=== PATIENT | male | born 1965 | race Caucasian/White ===

== ENCOUNTER 2018-09-21 21:34 | Emergency (ER) | payer BC ==
[~2018-09-21] VITALS: Ht 172.7 cm; Wt 83.9 kg
[2018-09-21 21:37] VITALS: BP 125/75
[2018-09-21] MEDS ORDERED: TDAP [DIPH/PERTUSSIS/TET] 0.5 ML VIAL IM ONE ×2 (22:30→22:39)
[2018-09-21] MEDS ORDERED: LIDOCAINE 1% INJ 50 ML MDV IJ ONE (23:30)
[2018-09-22] MEDS ORDERED: LIDOCAINE 1% INJ 50 ML MDV IJ ONE (00:30)
== END 2018-09-22 02:30 | disposition home or self-care (01) ==
LOC: ER 21:41
DX: S01.511A Laceration without foreign body of lip, initial encounter (principal); W54.0XXA Bitten by dog, initial encounter; Y93.89 Activity, other specified; Y92.89 Other specified places as the place of occurrence of the external cause; Y99.8 Other external cause status
CPT/HCPCS: 90715; A6402; J3490

== ENCOUNTER 2020-05-17 18:28 | Inpatient (IN) | payer BC ==
[~2020-05-17] VITALS: Ht 175.3 cm; Wt 78.0 kg
[2020-05-17] MEDS ORDERED: PANTOPRAZOLE 40 MG VIAL IV ONE ×2 (19:00→19:30)
[2020-05-17] MEDS ORDERED: PANTOPRAZOLE 80 MG in IV NS 0.9% 500 ML IV ONE (19:00)
[2020-05-17] MEDS ORDERED: ONDANSETRON HCL/PF 4 MG/2 ML VIAL IVP ONE (19:00)
[2020-05-17] MEDS ORDERED: IV NS 0.9% 1,000 ML BAG IV ONE (19:00)
[2020-05-17] MEDS ORDERED: ALPR0.5T8 PO (19:01)
[2020-05-17] MEDS ORDERED: ESCI10TA PO (19:01)
[2020-05-17] MEDS ORDERED: PANTOPRAZOLE 40 MG VIAL ONE ×2 (19:04→19:28)
[2020-05-17] MEDS ORDERED: ONDANSETRON HCL/PF 4 MG/2 ML VIAL ONE (19:04)
[2020-05-17 19:18] LABS: BASOPHILS # (AUTO) 0.1 /CMM (0.0-0.2); BASOPHILS % (AUTO) 0.6 % (0.0-2.0); EOSINOPHILS % (AUTO) 1.7 % (0.0-6.0); LYMPHOCYTES # (AUTO) 2.4 /CMM (0.8-4.8); LYMPHOCYTES % (AUTO) 19.3 % (20.0-44.0); MEAN CORPUSCULAR HGB CONC 33 g/dl (31.0-36.0); MEAN CORPUSCULAR VOLUME 105 fL (80-96); MONOCYTES # (AUTO) 1.2 /CMM (0.1-1.30); MONOCYTES % (AUTO) 9.6 % (2.0-12.0); NEUTROPHILS # (AUTO) 8.5 /CMM (1.8-8.9); NEUTROPHILS % (AUTO) 68.8 % (43.0-81.0); PLATELET COUNT (AUTO) 149 /CMM (150-450); WHITE BLOOD COUNT (AUTO) 12.4 K/uL (4.3-11.0)
--- NOTE | 2020-05-17 19:20 | NUR ---
BIBS FROM HOME TO ER BED 7. AAOX4. NOT IN RESP DISTRESS. AMBULATORY. CAME IN FOR BLACCK TARRY STOOL AND COFFEE GROUND EMESIS SINCE WEDNESDAY. PT ALSO IS COMPLAINING OF FEELING OF SOB, SATTING AT 100% ON RA. CLINT MÉNDEZ AT BEDSIDE FOR EVAL. ORDERS RECEIVED NOTED AND CARRIED OUT. IV LINE ESTABLISHED ON L AC 18G. BLOOD DRAWN AND GIVEN TO HOME HEALTH LPN AT BEDSIDE. EKG DONE BY EMT AT BEDSIDE. WILL CONTINUE TO MONITOR.
--- NOTE | 2020-05-17 19:25 | NUR ---
CALLED PHARMACY FOR PROTONIS DRIP AND INFORMED THAT PUSH IS PREFFERED OVER DRIP. CLINT ESCOBAR MADE AWARE. CANCELLED PROTONIX 80MG DRIP AND INSTREAD GAVE AN ORDER TO GIVEN ANOTHER PROTONIX 40MG PUSH TOTALLING TO PROTONIS 80MG IVP. NOTED AND WILL CARRY OUT.
[2020-05-17 19:26] LABS: RED BLOOD CELL COUNT(AUTO) 1.75 MIL/uL (4.5-6.0)
[2020-05-17 19:27] LABS: HEMATOCRIT 18 % (39-51)
--- NOTE | 2020-05-17 19:34 | NUR ---
COVID SWAB DONE AND SENT TO LAB
--- NOTE | 2020-05-17 19:45 | NUR ---
PAGED [facility].
[2020-05-17 19:47] LABS: ALBUMIN 2.9 g/dL (3.4-5.0); BILIRUBIN,DIRECT 0.7 mg/dL (0.0-0.2); BILIRUBIN,TOTAL 1.2 mg/dL (0.2-1.0); CALCIUM, SERUM 8.6 mg/dL (8.5-10.1); CREATININE 0.7 mg/dL (0.6-1.3); POTASSIUM 3.8 mmol/L (3.5-5.1); TOTAL PROTEIN, SERUM 5.6 g/dL (6.4-8.2)
--- NOTE | 2020-05-17 19:53 | NUR ---
CALL FROM LAB, COVID NEGATIVE.
--- NOTE | 2020-05-17 20:09 | NUR ---
DR DIAZ PAGED PER DALTON THOMASON.
[2020-05-17 20:36] LABS: BAND % (MANUAL) 2 % (0.0-5.0); EOSINOPHILS % (MANUAL) 2 % (0-4); LYMPHOCYTES % (MANUAL) 27 % (16-48); MONOCYTES % (MANUAL) 7 % (0-11.0); NEUTROPHILS % (MANUAL) 62 (42-76)
[2020-05-17 20:52] LABS: OCCULT BLOOD STOOL POSITIVE (NEGATIVE)
[2020-05-17] MEDS ORDERED: OCTREOTIDE 500 MCG/ML VIAL ONE (20:52)
[2020-05-17] MEDS ORDERED: OCTREOTIDE 500 MCG in IV NS 0.9% 99 ML IV PRN (21:00)
--- NOTE | 2020-05-17 21:12 | NUR ---
REPORT GIVEN TO LEXII ARTEAGA FOR AMINATA.
--- NOTE | 2020-05-17 21:16 | NUR ---
RN NOTES: RECE[place] CALL FROM [facility] [place] PT SCHEDULE FOR EGD TOMORROW AT 1800 (6PM) WITH DR DIAZ 05/18/2020. NOTIFIED ASSIGNED RN JENNI. WILL OBTAIN CONSENT FOR PROCEDURE.
[2020-05-17 21:33] VITALS: BP 104/68
--- NOTE | 2020-05-17 21:33 | NUR ---
ARTIST RELATIONSHIP MANAGERDEVELOPMENT ADMINISTRATOR NOTES PATIENT ADMITTED FOR GI BLEED. TRANSPORTED FROM ER IN STABLE CONDITION. A/OX4, AMBULATORY. TELE MONITOR READING NSR, HEART RATE 81. IV PRESENT ON RIGHT HAND, SIZE 20, INTACT & PATENT WITH SANDOSTATIN 500 MCG DRIP RUNNING AT 10 ML/HR; STARTED IN THE ER. IV PRESENT ON LEFT AC, SIZE 18, INTACT & PATENT HEP LOCKED. NO SKIN PROBLEMS NOTED UPON ASSESSMENT. PATIENT DENIES ANY NAUSEA OR PAIN AT THIS TIME; PATIENT STATES THAT BOWEL MOVEMENTS HAVE BEEN TARRY BLACK FOR THE PAST WEEK. BELONGINGS REVIEWED WITH PATIENT AND LIST PLACED IN CHART. SAFETY MEASURES IN PLACE AND PATIENT'S NEEDS MET. BED LOCKED, HOB ELEVATED, SIDE RAILS X2, CALL LIGHT WITHIN REACH. WILL CONTINUE TO MONITOR. Addendum: 05/18/20 at 0650 by DIEGO CONKLIN RN BILATERAL EYE REDNESS PRESENT
--- NOTE | 2020-05-17 21:41 | NUR ---
PT TRANSPORTED TO UNIT ON [facility] WITH EMT AND RN AT BEDSIDE W/ ACLS PROTOCOL. NAD NOTED DURING TRANSPORT. PT AMBULATED FROM RHAYWARD TO BED ON STEADY GAIT W/O ANY ASSIST.
[2020-05-17] MEDS ORDERED: MAGNESIUM HYDROXIDE 30 ML UDC PO PRN (22:00)
[2020-05-17] MEDS ORDERED: ONDANSETRON HCL/PF 4 MG/2 ML VIAL IVP PRN (22:00)
[2020-05-17] MEDS ORDERED: OCTREOTIDE 1,250 MCG in IV NS 0.9% 247.5 ML IV PRN (22:00)
[2020-05-17] MEDS ORDERED: Z GUARD REMEDY 2 OZ OINT TP PRN (22:00)
[2020-05-17] MEDS ORDERED: ACETAMINOPHEN 325 MG TABLET PO PRN (22:00)
[2020-05-17] MEDS ORDERED: MAG HYDROX/AL HYDROX/SIMETH 30 ML UDC PO PRN (22:00)
[2020-05-17 23:53] VITALS: BP 104/68
[2020-05-18] VITALS (17 sets, daily range): BP systolic 90–134; BP diastolic 47–77
--- NOTE | 2020-05-18 00:17 | NUR ---
PSYCH THERAPIST NOTES PATIENT'S TEMP BEFORE BLOOD TRANSFUSION 99.5. NOTIFIED ABSTRACTOR LLOYD PENA. PER KIKO OK TO GIVE PRN TYLENOL 650 MG BEFORE STARTING BLOOD TRANSFUSION ALONG WITH COOLING MEASURES. WILL CARRY OUT ORDERS.
--- NOTE | 2020-05-18 00:50 | NUR ---
SUPERVISOR FIBER LOCKING NOTES BLOOD TRANSFUSION STARTED. VERIFIED WITH CO RNMARCELLO. VITAL SIGNS- BP: 134/52, HR: 74, RR: 18, TEMP: 99.5, SPO2 ON RA: 100. WILL CONTINUE TO MONITOR AT THE BEDSIDE.
--- NOTE | 2020-05-18 01:20 | NUR ---
MACHINE PAN GREASER NOTES PATIENT TOLERATING BLOOD TRANSFUSION WELL. NO S/S OF TRANSFUSION REACTION NOTED. NO S/S OF ACUTE RESPIRATORY DISTRESS; BREATHING IS EVEN AND UNLABORED. VITAL SIGNS - BP: 105/55, HR: 83, SPO2 99 ON RA, RR: 18, TEMP: 99.7. BLOOD INFUSION RUNNING AT 100ML/HR. WILL CONTINUE TO MONITOR.
--- NOTE | 2020-05-18 03:53 | NUR ---
PEANUT SHAKER NOTES BLOOD TRANSFUSION COMPLETED; PATIENT TOLERATED WELL. NO REACTIONS NOTED. VITAL SIGNS - BP: 103/49, HR: 67, RR: 18; SPO2 ON RA: 100, TEMP: 99.2.
--- NOTE | 2020-05-18 04:47 | NUR ---
JAVA PROGRAMMER NOTES SECOND BAG OF PRBC RUNNING AT 130 ML/HR. PATIENT TOLERATING WELL. NO S/S OF TRANSFUSION REACTION NOTED. VITAL SIGNS - BP: 98/56, HR: 68, TEMP: 98.8, SPO2: 100 ON RA. WILL CONTINUE TO MONITOR.
[2020-05-18] MEDS: IV D5/0.45 NACL 1,000 ML IV PRN (07:14)
--- NOTE | 2020-05-18 07:39 | NUR ---
SCREEN PRINTING STENCIL PREPARER CLOSING NOTES PATIENT AWAKE IN BED. A/OX4. STABLE ON RA; NO S/S OF ACUTE OF RESPIRATORY DISTRESS; NO C/O PAIN AT THIS TIME. SECOND BAG OF PRBC COMPLETED; TOLERATED INFUSION WELL; NO S/S OF TRANSFUSION REACTION NOTED; VITALS- BP: 105/76, HR: 67, TEMP: 98.5. IV ON LEFT AC, SIZE 18 AND RIGHT HAND, SIZE 20 REMAINS INTACT & PATENT. TELE MONITOR READING NSR WITH BBB. SAFETY MEASURES IN PLACE AND PATIENT'S NEEDS MET. BED LOCKED, SIDE RAILS X2, CALL LIGHT WITHIN REACH. ENDORSED TO DAY SHIFT RN PLAN OF CARE.
--- NOTE | 2020-05-18 07:49 | NUR ---
RN OPENING NOTE Patient is resting in bed, A/O x4, showing no signs of acute distress or SOB, stable on RA. s/p 2 units PRBC completed around 0730 today. Tele monitor SR 60s-70s. IV line in the LAC#18g is clean and intact running D5 1/2 NS @ 75mls/hour. Patient kept NPO for EGD scheduled for today. Bed is in lowest position, side rails x3 in upright position, call light is within reach, fall safety and aspiration precautions enforced. Will continue with plan of care.
--- NOTE | 2020-05-18 08:00 | NUR ---
RN NOTE Patient is scheduled to have EGD today at 1800--confirmed with OR. Patient remains NPO.
[2020-05-18] MEDS: PANTOPRAZOLE 40 MG VIAL IV SCH ×2 (08:05→16:35)
[2020-05-18 08:20] LABS: BASOPHILS # (AUTO) 0.1 /CMM (0.0-0.2); BASOPHILS % (AUTO) 1.2 % (0.0-2.0); EOSINOPHILS % (AUTO) 3.4 % (0.0-6.0); HEMATOCRIT 24 % (39-51); HEMOGLOBIN 8.2 g/dL (13.5-17.5); LYMPHOCYTES # (AUTO) 2.2 /CMM (0.8-4.8); MEAN CORPUSCULAR HGB CONC 34 g/dl (31.0-36.0); MEAN CORPUSCULAR VOLUME 100 fL (80-96); MONOCYTES # (AUTO) 0.9 /CMM (0.1-1.30); MONOCYTES % (AUTO) 9.7 % (2.0-12.0); NEUTROPHILS # (AUTO) 5.7 /CMM (1.8-8.9); NEUTROPHILS % (AUTO) 61.7 % (43.0-81.0); PLATELET COUNT (AUTO) 134 /CMM (150-450); RED BLOOD CELL COUNT(AUTO) 2.43 MIL/uL (4.5-6.0); WHITE BLOOD COUNT (AUTO) 9.3 K/uL (4.3-11.0)
[2020-05-18 08:35] LABS: ALBUMIN 2.9 g/dL (3.4-5.0); BILIRUBIN,TOTAL 4.9 mg/dL (0.2-1.0); CALCIUM, SERUM 7.6 mg/dL (8.5-10.1); CREATININE 0.7 mg/dL (0.6-1.3); MAGNESIUM 2.3 mg/dL (1.8-2.4); PHOSPHORUS 3.6 mg/dL (2.5-4.9); TOTAL PROTEIN, SERUM 5.3 g/dL (6.4-8.2)
[2020-05-18 08:42] LABS: THYROID STIMULATING HORMONE 1.157 uIU/mL (0.358-3.74)
[2020-05-18] MEDS: NICOTINE PATCH (14MG) 14 MG PATCH.TD24 TD SCH (09:00)
[2020-05-18 09:53] LABS: IRON, SERUM 286 ug/dl (50-175); TOTAL IRON BINDING CAPACITY 313 ug/dl (250-450)
[2020-05-18 12:17] LABS: FERRITIN 244 ng/mL (8-388)
[2020-05-18] MEDS: OCTREOTIDE 500 MCG in IV NS 0.9% 99 ML IV SCH ×2 (13:25→22:38)
[2020-05-18] MEDS ORDERED: SOD FERRIC GLUC 125 MG in IV NS 0.9% 100 ML IV SCH (14:00)
[2020-05-18 14:13] LABS: HEMOGLOBIN 8.2 g/dL (13.5-17.5)
--- NOTE | 2020-05-18 17:57 | NUR ---
RN NOTE Patient left for EGD. Addendum: 05/18/20 at 1843 by VIOLETA FERNÁNDEZ RN Spoke with OR nurse asking if I could speak with Dr. Stinson in terms of patient continuing the SANDOSTATIN IV after the procedure. Per OR nurse, to wait for post-op orders from
[2020-05-18] MEDS ORDERED: CEFTRIAXONE 1 G VIAL IM SCH (18:30)
[2020-05-18 18:37] LABS: APPEARANCE,URINE CLEAR (CLEAR); BILIRUBIN,URINE NEGATIVE (NEGATIVE); BLOOD, URINE NEGATIVE Ery/uL (NEGATIVE); COLOR,URINE YELLOW (YELLOW); KETONES,URINE NEGATIVE (NEGATIVE); LEUKOCYTE ESTERASE ,URINE NEGATIVE (NEGATIVE); NITRITE, URINE NEGATIVE (NEGATIVE); PH,URINE 5.5 (5.0-8.0); PROTEIN,URINE NEGATIVE (NEGATIVE); UGLUCOSE NEGATIVE (NEGATIVE)
--- NOTE | 2020-05-18 18:41 | NUR ---
RN CLOSING NOTE Patient is currently in OR for EGD with Dr. Stinson. All patient needs met, all due medications given, patient is independent with self-care. Will endorse to film processing shift supervisor for AMINATA.
[2020-05-18 18:43] LABS: BACTERIA,URINE None seen /HPF (None Seen); RBC,URINE 0-2 /HPF (0-2); SQUAMOUS EPITHELIAL CELL,UR 0-2 /HPF (None Seen); WBC,URINE 0-2 /HPF (0-3)
--- NOTE | 2020-05-18 18:59 | NUR ---
RN NOTE BACK FROM OR Patient arrived back from the OR, AO x4, O2 sat 99% on RA. BP 125/56 HR 69 T 98.1F RR18. Patient remains stable. No wirtten post-op order-- placed orders on [employer]. IV line is clean and intact in the LAC#18g running sandostatin @10mls/hour-- ok per Dr. franklin to continue. Bed is in lowest position, side rails x3 in upright position, call light is within reach, fall safety and aspiration precautions enforced. Will endorse to night guard.
[2020-05-18] MEDS ORDERED: CEFTRIAXONE 1 G in IV D5W 50 ML IV SCH (19:00)
--- NOTE | 2020-05-18 19:35 | NUR ---
MS RN NOTES RECEIVED ON BED A/I X4,S/P EGD BY DR DIAZ, WITH RESULT,GRADE 3 VARICES AND PARTIAL HYPERTENSIVE GASTROPATHY.ON SANDOSTATIN DRIP AT 10 RATE,IV ROCEPHINE IVPB INFUSING WELL.ON CLEAR LIQUID DIET POST EGD,CALL LIGHT IN REACH,NEEDS ANTICIPATED.
--- NOTE | 2020-05-18 20:30 | NUR ---
MS RN NOTES C/O MID EPIGASTRIC PAIN,S/P EGD,INFORMED PATIENT THAT HE HAS TYLENOL ONLY FOR PAIN.PATIENT SAYS HE DOESNT REALLY TAKE TYLENOL.
--- NOTE | 2020-05-18 20:35 | NUR ---
MS RN NOTES HOSPITALIST MADE AWARE OF PATIENT CONCERN,WITH ORDER TO TO GIVE TUMS,SINCE ITS EPIGASTRIC.PATIENT MADE AWARE AND HE SAID ITS HARD TO SWALLOW,EVEN WATER.HE WANTS SOMETHING IV OR LIQUID BUT NOT THE STRONG ONE.LLOYD MADE AWARE.
--- NOTE | 2020-05-18 20:40 | NUR ---
MS RN NOTES HOSPITALIST MADE AWARE THAT PATIENT REFUSED TUMS,SO SHE ORDERED MORPHINE .5MG IVP X 1 DOSE,NOTED AND CARRIED OUT.
[2020-05-18] MEDS ORDERED: MORPHINE SULFATE INJ 2 MG/ML DISP.SYRIN IV ONE (21:00)
--- NOTE | 2020-05-18 21:00 | NUR ---
MS RN NOTES HE USED THE TOILET AND DID #2.PATIENT SAID,STILL DARK RED.WILL CONTINUE TO MONITOR.
--- NOTE | 2020-05-18 21:12 | NUR ---
MS RN NOTES MEDICATED WITH MORPHINE 0.5MG IVP ORDERED X ONE DOSE.
--- NOTE | 2020-05-19 06:23 | NUR ---
MS RN NOTES ON BED AWAKE,ALERT,CLAIMED HE FEELS BETTER,PAIN MANAGEMENT EFFECTIVE.STILL HAD X 2 BM,DARK RED IN COLOR,MOSTLY NON SOLID,PATIENT ON CLEAR LIQUID,S/P EGD YESTERDAY.SANDOSTATIN IN PROGRESS AT 10ML/25MCG,INFUSING VIA IV PUMP.AMBULATE IN THE ROOM.SSALINE LOCK LEFT AC INTACT AND PATENT.CALL LIGHT IN REACH,NEEDS ATTENDED.
[2020-05-19 06:44] LABS: BASOPHILS # (AUTO) 0.1 /CMM (0.0-0.2); BASOPHILS % (AUTO) 1.2 % (0.0-2.0); EOSINOPHILS % (AUTO) 3.5 % (0.0-6.0); HEMATOCRIT 24 % (39-51); HEMOGLOBIN 8.1 g/dL (13.5-17.5); LYMPHOCYTES # (AUTO) 1.6 /CMM (0.8-4.8); MEAN CORPUSCULAR HGB CONC 34 g/dl (31.0-36.0); MEAN CORPUSCULAR VOLUME 100 fL (80-96); MONOCYTES % (AUTO) 10.4 % (2.0-12.0); NEUTROPHILS # (AUTO) 6.5 /CMM (1.8-8.9); NEUTROPHILS % (AUTO) 67.9 % (43.0-81.0); PLATELET COUNT (AUTO) 140 /CMM (150-450); RED BLOOD CELL COUNT(AUTO) 2.41 MIL/uL (4.5-6.0); WHITE BLOOD COUNT (AUTO) 9.6 K/uL (4.3-11.0)
[2020-05-19 07:06] LABS: BILIRUBIN,TOTAL 2.5 mg/dL (0.2-1.0); CALCIUM, SERUM 7.3 mg/dL (8.5-10.1); CREATININE 0.9 mg/dL (0.6-1.3); MAGNESIUM 2.5 mg/dL (1.8-2.4); TOTAL PROTEIN, SERUM 5.6 g/dL (6.4-8.2)
[2020-05-19 08:00] VITALS: BP 121/65
[2020-05-19] MEDS: OCTREOTIDE 500 MCG in IV NS 0.9% 99 ML IV SCH (08:35)
[2020-05-19] MEDS: NICOTINE PATCH (14MG) 14 MG PATCH.TD24 TD SCH (08:36)
[2020-05-19] MEDS: PANTOPRAZOLE 40 MG VIAL IV SCH (08:36)
[2020-05-19] MEDS ORDERED: PROPRANOLOL LA 60 MG CAP.SA.24H PO SCH (10:30)
[2020-05-19] MEDS: IV D5/0.45 NACL 1,000 ML IV PRN (11:47)
[2020-05-19 12:10] VITALS: BP 121/65
[2020-05-19] MEDS ORDERED: PROP60CA38 PO (13:00)
[2020-05-19] MEDS ORDERED: PANT40TA2 PO (13:00)
--- NOTE | 2020-05-19 14:28 | NUR ---
rn notes patient dc at this time. no sob noted, VSS. patient has all the discharge information, no further questions or concerns. IV lines removed, and has minimal bleeding. Patient to be picked up by friend via private car.
== END 2020-05-19 14:30 | disposition home or self-care (01) | DRG 299 ==
LOC: ER 18:31 → TELE 20:45 → MED 05-18 09:29
PROVIDERS: ADMIT Registered Nurse; ATTEND Hospitalist
PROC: 06L28CZ Occlusion of Gastric Vein with Extraluminal Device, Via Natural or Artificial Opening Endoscopic (ICD-10-PCS; principal; 2020-05-18)
PROC: 30233N1 Transfusion of Nonautologous Red Blood Cells into Peripheral Vein, Percutaneous Approach (ICD-10-PCS; principal; 2020-05-18)
DX: I86.4 Gastric varices (principal); K85.90 Acute pancreatitis without necrosis or infection, unspecified; K76.6 Portal hypertension; D62 Acute posthemorrhagic anemia; F17.210 Nicotine dependence, cigarettes, uncomplicated; K31.89 Other diseases of stomach and duodenum; D69.59 Other secondary thrombocytopenia; F32.9 Major depressive disorder, single episode, unspecified; K74.60 Unspecified cirrhosis of liver; D72.829 Elevated white blood cell count, unspecified; E80.6 Other disorders of bilirubin metabolism; R74.0 Nonspecific elevation of levels of transaminase and lactic acid dehydrogenase [LDH]; R53.1 Weakness; Z71.6 Tobacco abuse counseling; H11.33 Conjunctival hemorrhage, bilateral; K72.90 Hepatic failure, unspecified without coma; Z79.1 Long term (current) use of non-steroidal anti-inflammatories (NSAID)
CPT/HCPCS: 36415; 71045-TC; 80048-TC; 80053-TC; 80061-TC; 80076-TC; 81000-TC; 82140-TC; 82247-TC; 82248-TC; 82272-TC; 82728-TC; 83540-TC; 83690-TC; 83735-TC; 84100-TC; 84443-TC; 84484-TC; 85025-TC; 85027-TC; 85730-TC; 86850-TC; 87081-TC; 93307-TC; C9113; C9803-CS; G0378; J0696; J2270; J2354; J2405; J2704; J2916; J3490; J7030; J7040; J7050; J7060; P9016-BL

== ENCOUNTER 2022-01-11 01:08 | Inpatient (IN) | payer BC ==
[~2022-01-11] VITALS: Ht 172.7 cm; Wt 66.2 kg
[~2022-01-11 01:08] MED LIST: ALPR0.5T8 PO; ESCI10TA PO; PANT40TA2 PO; PROP60CA38 PO
--- NOTE | 2022-01-11 01:44 | NUR ---
[id number] FROM HOME C/O WEAKNESS AND GLF THIS MORNING. STATES HE IS NORMALLY AMBULATORY WITH STEADY GAIT, BUT HIS LEGS SUDDENLY GAVE OUT IN THE AM WHILE WALKING AND HAS SINCE BEEN WEAK AND UNABLE TO AMBULATE. SUPERFICIAL ABRASION TO L FOREARM. DENIES ANY HT, LOC, OR BLOOD THINNER USE. PT AWAKE AND ALERT AND BASELINE MENTATION BREATHING EVEN AND UNLABORED.
[2022-01-11] MEDS ORDERED: IV NS 0.9% 1,000 ML BAG IV ONE (02:00)
--- NOTE | 2022-01-11 02:00 | NUR ---
18g IV LINE ESTABLISHED AT . LABS AND CULTURES DRAWN AND SENT TO LAB. COVID SWABBED AND SENT TO LAB.
[2022-01-11 02:10] LABS: BASOPHILS % (AUTO) 0.2 % (0.0-2.0); EOSINOPHILS % (AUTO) 0.5 % (0.0-6.0); HEMATOCRIT 34 % (39-51); HEMOGLOBIN 11.9 g/dL (13.5-17.5); LYMPHOCYTES # (AUTO) 0.5 K/uL (0.8-4.8); LYMPHOCYTES % (AUTO) 7.3 % (20.0-44.0); MEAN CORPUSCULAR HGB CONC 36 g/dl (31.0-36.0); MEAN CORPUSCULAR VOLUME 102 fL (80-96); MONOCYTES # (AUTO) 0.8 K/uL (0.1-1.30); MONOCYTES % (AUTO) 12.1 % (2.0-12.0); NEUTROPHILS # (AUTO) 5.4 K/uL (1.8-8.9); NEUTROPHILS % (AUTO) 79.9 % (43.0-81.0); PLATELET COUNT (AUTO) 91 K/uL (150-450); RED BLOOD CELL COUNT(AUTO) 3.28 MIL/uL (4.5-6.0); WHITE BLOOD COUNT (AUTO) 6.8 K/uL (4.3-11.0)
[2022-01-11 02:42] LABS: ALANINE AMINOTRANSFERASE 31 U/L (12-78); ALKALINE PHOSPHATASE 171 U/L (46-116); ASPARTATE AMINOTRANSFERASE 65 U/L (15-37); BILIRUBIN,DIRECT 2.1 mg/dL (0.0-0.2); BILIRUBIN,TOTAL 3.5 mg/dL (0.2-1.0); CALCIUM, SERUM 8.6 mg/dL (8.5-10.1); CARBON DIOXIDE 20 mmol/L (21-32); CHLORIDE 82 mmol/L (98-107); CREATININE 0.9 mg/dL (0.6-1.3); GLUCOSE 136 mg/dL (74-106); POTASSIUM 4.1 mmol/L (3.5-5.1); TOTAL PROTEIN, SERUM 6.4 g/dL (6.4-8.2); UREA NITROGEN, BLOOD 15 mg/dL (7-18)
[2022-01-11 02:43] LABS: SODIUM SERUM 116 mmol/L (136-145)
--- NOTE | 2022-01-11 02:45 | NUR ---
Roque corrales in [facility] - 01/11/22 at 0246 by ROSEMARIE Patient discharged to home in stable condition. Written and verbal after care instructions given. Patient verbalizes understanding of instruction. IV line removed.
--- NOTE | 2022-01-11 02:56 | NUR ---
PT STILL UNABLE TO GIVE URINE AT THIS TIME . URINAL AT BEDSIDE.
[2022-01-11 03:16] LABS: ABG BASE EXCESS -5.4 mmol/L; ABG PCO2 25.5 mmHg (35.0-45.0); ABG PH 7.447 (7.350-7.450); ABG PO2 89.9 mmHg (75.0-100.0); COHb 0.3 % (0.5-1.5); MetHb 0.4 % (0.0-1.5); O2Hb 95.7 % (94.0-97.0); SITE, ABG Left Radial; VENT MODE, BG room air
[2022-01-11] MEDS ORDERED: ONDANSETRON HCL/PF 4 MG/2 ML VIAL IVP PRN (04:30)
[2022-01-11] MEDS ORDERED: ACETAMINOPHEN 325 MG TABLET ONE ×2 (04:36→12:40)
[2022-01-11] MEDS: ACETAMINOPHEN 325 MG TABLET PO PRN ×2 (04:40→12:47)
--- NOTE | 2022-01-11 04:59 | NUR ---
PT STILL UNABLE TO GIVE URINE AT THIS TIME . URINAL AT BEDSIDE
[2022-01-11] MEDS ORDERED: VANCOMYCIN 1.25 GM in IV D5W 250 ML IV SCH (06:30)
[2022-01-11] MEDS: PIPERACILLIN /TAZOBACTAM 3.375 G in IV D5W 50 ML IV SCH ×3 (06:45→18:32)
--- NOTE | 2022-01-11 06:47 | NUR ---
URINE COLLECTED AND SENT TO LAB
[2022-01-11 07:14] LABS: BILIRUBIN,URINE SMALL (NEGATIVE); COLOR,URINE ORANGE (YELLOW); LEUKOCYTE ESTERASE ,URINE NEGATIVE (NEGATIVE); NITRITE, URINE NEGATIVE (NEGATIVE); PROTEIN,URINE NEGATIVE (NEGATIVE); UGLUCOSE NEGATIVE (NEGATIVE)
[2022-01-11 07:53] LABS: EOSINOPHILS % (MANUAL) 1 % (0-4); LYMPHOCYTES % (MANUAL) 12 % (16-48); MONOCYTES % (MANUAL) 6 % (0-11.0); NEUTROPHILS % (MANUAL) 81 (42-76)
[2022-01-11] MEDS ORDERED: PANT40TA49 PO (08:02)
[2022-01-11] MEDS ORDERED: FURO40TA5 PO (08:02)
[2022-01-11] MEDS ORDERED: SPIR100T5 PO (08:02)
[2022-01-11] MEDS ORDERED: PROP60CA2 PO (08:02)
[2022-01-11] MEDS ORDERED: PANTOPRAZOLE 40 MG VIAL ONE (08:33)
[2022-01-11 08:36] LABS: RBC,URINE 0-2 /HPF (0-2); WBC,URINE 0-2 /HPF (0-3)
[2022-01-11 08:37] LABS: BACTERIA,URINE Rare /HPF (None Seen); SQUAMOUS EPITHELIAL CELL,UR Rare /HPF (None Seen)
[2022-01-11] MEDS: RIFAXIMIN 550 MG TABLET PO SCH ×2 (08:37→18:30)
[2022-01-11] MEDS: PANTOPRAZOLE 40 MG VIAL IV SCH (08:38)
--- NOTE | 2022-01-11 08:40 | NUR ---
PATIENT IN BED, AAOX3, BREATHING EVEN AND NON LABORED
[2022-01-11] MEDS: IV NS 0.9% 1,000 ML IV PRN (12:01)
--- NOTE | 2022-01-11 13:27 | NUR ---
REPORT GIVEN TO SIMA SHULTZ FOR AMINATA
[2022-01-11] MEDS ORDERED: LORAZEPAM INJ 2 MG/ML VIAL IV PRN (13:30)
--- NOTE | 2022-01-11 13:40 | NUR ---
TRANSFERRED TO BED 328 IN STABLE CONDITION
--- NOTE | 2022-01-11 14:00 | NUR ---
PRECISION LATHE OPERATOR OPENING NOTES RECEIVED PATIENT VIA GURNEY FROM ER. ALERT AND ORIENTED TIMES 4. NO PAIN NOTED. NO SOB NOTED. NO DISTRESS NOTED. IV ACCESS ON THE RIGHT FOREARM INTACT AND PATENT. RUNNING NS AT 75 ML/HR. ON TELE MONITOR. READING SR 65. NOTED WITH DRY WOUNDS ON BOTH KNEES AND RIGHT UPPER ARM. ALL NEEDS ATTENDED. CALL LIGHT AND TABLE IN REACH. BED LOCKED IN THE LOWEST POSITION. WILL CONTINUE TO MONITOR THE PATIENT.
--- NOTE | 2022-01-11 14:00 | NUR ---
RN NOTES RECEIVED REPORT FROM DARCIE FROM ER AT 1330.
[2022-01-11] MEDS: THIAMINE HCL 100 MG TABLET PO SCH (15:07)
[2022-01-11] MEDS: NICOTINE PATCH (21MG) 21 MG PATCH.TD24 TD SCH (15:07)
[2022-01-11] MEDS: FOLIC ACID 1 MG TABLET PO SCH (15:08)
[2022-01-11] MEDS: CHLORDIAZEPOXIDE HCL 25 MG CAPSULE PO SCH ×2 (15:08→18:30)
[2022-01-11 15:20] LABS: CALCIUM, SERUM 8.5 mg/dL (8.5-10.1); CREATININE 0.7 mg/dL (0.6-1.3); POTASSIUM 3.8 mmol/L (3.5-5.1)
[2022-01-11] MEDS: VANCOMYCIN 0.75 GM in IV D5W 250 ML IV SCH ×2 (15:30→22:54)
[2022-01-11 18:33] LABS: CALCIUM, SERUM 8.7 mg/dL (8.5-10.1); CREATININE 0.8 mg/dL (0.6-1.3); POTASSIUM 3.7 mmol/L (3.5-5.1)
--- NOTE | 2022-01-11 19:30 | NUR ---
AIRWORTHINESS SAFETY INSPECTOR CLOSING NOTES PATIENT AWAKE IN BED. ALERT AND ORIENTED TIMES 4. NO PAIN NOTED. NO SOB NOTED. NO DISTRESS NOTED. IV ACCESS ON THE RIGHT FOREARM INTACT AND PATENT. RUNNING NS AT 75 ML/HR. ON TELE MONITOR. READING SR 67. NOTED WITH DRY WOUNDS ON BOTH KNEES AND RIGHT UPPER ARM. ALL DUE MEDS GIVEN ORDERED.ALL NEEDS ATTENDED. CALL LIGHT AND TABLE IN REACH. BED LOCKED IN THE LOWEST POSITION. WILL ENDORSE FOR AMINATA..
--- NOTE | 2022-01-11 19:40 | NUR ---
RN NOTES RECEIVED CALL FROM LAB FOR CRITICAL LAB VALUE OF THE SODIUM 118. INFORMED DR LORA AND DR GODINEZ. NEW ORDER OF FUROSEMIDE 40 MG IV ONCE GIVEN. ALSO CONTINUE HYDRATION OF NS AT 75 ML/HR
--- NOTE | 2022-01-11 19:52 | NUR ---
S IRON WORKER OPENING NOTES: RECEIVED PATIENT AWAKE IN BED, BED IN LOW POSITION, CALL LIGHTS WITHIN REACH, NO COMPLAIN OF PAIN AND DISCOMFORT AT THIS TIME, NO COMPLAIN OF PAIN AND DISCOMFORT AT THIS TIME, PATIENT WITH IV LINE AT RFA#18 WITH ONGOING NSS@75ML/HR INFUSING WELL, PATIENT IS A/OX4 ABLE TO MAKE NEEDS KNOWN, ON ROOM AIR SATURATING WELL, PATIENT KEPT CLEAN AND DRY ALL NEEDS MET WILL CONTINUE TO MONITOR.
[2022-01-11 21:02] VITALS: BP 98/55
[2022-01-11] MEDS: HEPARIN SODIUM, PORCINE 5000 UNITS/1 ML VIAL SQ SCH (21:23)
[2022-01-11] MEDS ORDERED: FUROSEMIDE 40 MG/4 ML VIAL IV ONE (21:30)
[2022-01-11 21:41] LABS: CALCIUM, SERUM 8.5 mg/dL (8.5-10.1); CREATININE 0.7 mg/dL (0.6-1.3); POTASSIUM 3.2 mmol/L (3.5-5.1)
--- NOTE | 2022-01-11 23:43 | NUR ---
RN NOTES: PATIENT HAS AN ORDER OF FUROSEMIDE 40MG ONE TIME, CHECK THE VITAL SIGN AT 2029 BP-98/55 HR-76, 2144 BP-92/54 HR-62 AT 2032 BP- 95/[address] JAVED BUT NO RESPONSE NOTIFY HOSPITALIST KATELIN DESAI AND ASK TO PUT IT ON HOLD AND MONITOR V/S PER LLOYD IF SYSTOLIC BP HIT 110 TO NOTIFY HER MOST RECENT BP AT 2330 WAS 94/49 HR-61 FUR TANNER LLOYD WAS AWARE, WILL CONTINUE TO MONITOR
[2022-01-12 00:06] VITALS: BP_SYST 112; BP_SYST 95; BP_DIAS 52; BP_DIAS 54
[2022-01-12] MEDS: PIPERACILLIN /TAZOBACTAM 3.375 G in IV D5W 50 ML IV SCH ×4 (00:11→17:04)
[2022-01-12 01:29] LABS: CALCIUM, SERUM 8.4 mg/dL (8.5-10.1); CREATININE 0.7 mg/dL (0.6-1.3); POTASSIUM 3.3 mmol/L (3.5-5.1)
[2022-01-12] MEDS: IV NS 0.9% 1,000 ML IV PRN (02:49)
[2022-01-12 04:17] VITALS: BP 92/54
[2022-01-12 06:16] LABS: BASOPHILS # (AUTO) 0.1 K/uL (0.0-0.2); BASOPHILS % (AUTO) 1.1 % (0.0-2.0); EOSINOPHILS % (AUTO) 2.7 % (0.0-6.0); HEMATOCRIT 30 % (39-51); HEMOGLOBIN 10.8 g/dL (13.5-17.5); LYMPHOCYTES # (AUTO) 0.7 K/uL (0.8-4.8); LYMPHOCYTES % (AUTO) 13.2 % (20.0-44.0); MEAN CORPUSCULAR HGB CONC 36 g/dl (31.0-36.0); MEAN CORPUSCULAR VOLUME 103 fL (80-96); MONOCYTES # (AUTO) 0.6 K/uL (0.1-1.30); MONOCYTES % (AUTO) 10.7 % (2.0-12.0); NEUTROPHILS # (AUTO) 3.9 K/uL (1.8-8.9); NEUTROPHILS % (AUTO) 72.3 % (43.0-81.0); PLATELET COUNT (AUTO) 59 K/uL (150-450); RED BLOOD CELL COUNT(AUTO) 2.94 MIL/uL (4.5-6.0); WHITE BLOOD COUNT (AUTO) 5.4 K/uL (4.3-11.0)
[2022-01-12] MEDS: VANCOMYCIN 0.75 GM in IV D5W 250 ML IV SCH ×3 (06:23→21:09)
--- NOTE | 2022-01-12 06:30 | NUR ---
RN NOTES: DR GODINEZ RESPONSE TO D/C FUROSEMIDE 40 MG. ONE TIME DUE TO PATIENT BEING HYPOTENSIVE, KATELIN DESAI WAS MADE AWARE.
[2022-01-12 07:22] LABS: CALCIUM, SERUM 8.6 mg/dL (8.5-10.1); CREATININE 0.7 mg/dL (0.6-1.3); MAGNESIUM 1.4 mg/dL (1.8-2.4); PHOSPHORUS 2.8 mg/dL (2.5-4.9); POTASSIUM 3.4 mmol/L (3.5-5.1)
--- NOTE | 2022-01-12 07:26 | NUR ---
MANAGER CARE CLOSING NOTES: PATIENT AAWAKE IN BED, BED IN LOW POSITION CALL LIGHTS WITHIN REACH, NO COMPLAIN OF PAIN AND DISCOMFORT AT THIS TIME, ON NPO, ON ROOM AIR SATURATING WELL, WITH IV LINE AT RFA#22 WITH ONGOING NSS@75ML PER HOUR INFUSING WELL, PATIENT KEPT CLEAN AND DRY ALL NEEDS MET WILL ENDORSE TO INCOMING SHIFT.
--- NOTE | 2022-01-12 07:55 | NUR ---
RN OPENING NOTE PATIENT AWAKE IN BED, BED IN LOW POSITION, CALL LIGHT WITHIN REACH, ASKING ABOUT PARACENTESIS, STATED DISCOMFORT -PRESSURE W ABDOMINAL FLUIDS. PATIENT WITH IV LINE AT RFA#18 WITH ONGOING NS@75ML/HR INFUSING WELL, PATIENT IS A/OX4 ABLE TO MAKE NEEDS KNOWN, ON ROOM AIR SATURATING WELL, PATIENT KEPT CLEAN AND DRY ALL NEEDS MET . ASKED SUPERINTENDENT FACTORY LORA ABOUT PARACENTESIS AND NPO STATUS. WILL CONTINUE TO MONITOR / ASSIST
[2022-01-12 08:19] VITALS: BP 102/58
[2022-01-12] MEDS: THIAMINE HCL 100 MG TABLET PO SCH (08:36)
[2022-01-12] MEDS: PANTOPRAZOLE 40 MG VIAL IV SCH (08:36)
[2022-01-12] MEDS: NICOTINE PATCH (21MG) 21 MG PATCH.TD24 TD SCH (08:36)
[2022-01-12] MEDS: ESCITALOPRAM OXALATE (10 MG) 10 MG TABLET PO SCH (08:36)
[2022-01-12] MEDS: RIFAXIMIN 550 MG TABLET PO SCH ×2 (08:36→16:10)
[2022-01-12] MEDS: FOLIC ACID 1 MG TABLET PO SCH (08:37)
[2022-01-12] MEDS: HEPARIN SODIUM, PORCINE 5000 UNITS/1 ML VIAL SQ SCH ×2 (08:38→21:00)
[2022-01-12] MEDS: CHLORDIAZEPOXIDE HCL 25 MG CAPSULE PO SCH ×2 (08:40→16:10)
[2022-01-12] MEDS: PROPRANOLOL LA 60 MG CAP.SA.24H PO SCH (08:48)
--- NOTE | 2022-01-12 10:19 | NUR ---
WOUND CARE CONSULT: PT PRESENTS WITH VERY LARGE ABDOMEN AND AREAS OF SKIN DISCOLORATION AND DRY ABRASIONS, PRESENT ON ADMISSION. RECOMMENDATIONS MADE FOR SKIN PROTECTION. DISCUSSED WITH NURSING STAFF. MD IN AGREEMENT WITH PLAN OF CARE.
--- NOTE | 2022-01-12 11:08 | NUR ---
SS Note: SS received consult for drug abuse. Pt. Is a 56-year-old White male who demonstrates adequate insight to the reason for hospitalization. Per pt., he presents to the hospital for low sodium level. Per EMR, pt. presents to the hospital due to feeling generalized weakness and his knees gave out on him. Pt. was oriented x3, alert, and cooperative. During interview, pt. was capable of following directions and appeared unkempt. Pt.s speech was at a normal rate and pt.s mood was elevated. Pt. reported no hx of mental health, substance abuse, suicidal ideation, or homicidal ideation. Pt. denies auditory hallucinations, visual hallucinations, paranoia, or delusions. When asked about substance abuse, pt. denied then stated that he does drink but its not a problem. Per pt., drinking is his coping mechanism. Pt. stated that he has been drinking for 2 years. SW explored pt.s living situation. Per pt., he resides with his partner Dustin Butler [[phone]] [[id number] [place] [address]]. Pt.s partner is supportive and takes care of pt. at home. Pt. mentioned that he never been to rehab and does not know if he wants to. SW recommends rehab but pt. refuse to speak or answer any further questions. Plan: SW provided available substance abuse resources and pt. accepted. SW suggested rehab and pt. mentioned that he will look at the list provided before deciding. Resources Provided: Counseling--Outpatient [facility] [address], [place] [address] (Specializes in in-depth psychotherapy for emotional distress: anxiety, depression, interpersonal conflicts, life transitions, childhood abuse) [facility] [address] [place] [address] (Assist with solving problem marital difficulties, separation & divorce, aging parents, & grief, chronic & terminal illness) [facility] [address] [place] [address] (Deal with loss & grief, anxiety, marital difficulties) [facility] Health [facility] [address], [address] [place] [address] (Provide in-home mental services to people who are incapable of leaving their homes) [facility] [address] [place] [address] [facility] [address] [place] [address] PSYCHIATRIC OUTPATIENT SERVICES [facility] Partial Hospitalization and Intensive Outpatient Program (Managed Care and [place] Only)[address] [facility] [phone] [facility] Partial Hospitalization and Outpatient [id number] [place], [place] [phone] [facility] [place] [address] [place], [place] [phone] [facility] Partial Hospitalization and Outpatient [id number] [place], [phone] Substance Abuse resources provided included: [facility] Substance Abuse Self-Helpline ([facility]) ; [facility] [address] [facility] [place] [address] ; [facility] [address] [address] ; [facility] [address] [address] ; [facility]ically [facility] [address] [address] ; [facility] [address] [facility] [address] ; [facility] [address] [facility] [address] ; [facility] Substance Abuse Helpline(SAS)[facility] ; [facility] ; [facility] [place]; [facility] [place]; [facility] [place]; [facility]; [place]; [facility] [place]; [facility], [facility]. [place]; Alcoholics Anonymous -[facility]V; [facility] ; Marijuana Anonymous [facility]; Narcotics Anonymous www.na.org;
[2022-01-12] MEDS ORDERED: MAGNESIUM OXIDE 400 MG TABLET PO ONE ×2 (11:30→12:30)
[2022-01-12] MEDS ORDERED: POTASSIUM CHLORIDE 20 MEQ TAB.PRT.SR PO SCH (12:00)
[2022-01-12 12:12] VITALS: BP 94/56
--- NOTE | 2022-01-12 14:36 | NUR ---
Pt.'s Brother Yamileth [[phone]].
[2022-01-12 16:23] VITALS: BP_SYST 102; BP_SYST 103; BP_DIAS 58; BP_DIAS 60
--- NOTE | 2022-01-12 18:36 | NUR ---
RN CLOSING NOTE PATIENT AWAKE IN BED, BED IN LOW POSITION, CALL LIGHT WITHIN REACH, ASKING ABOUT PARACENTESIS, STATED DISCOMFORT -PRESSURE W ABDOMINAL FLUIDS. PATIENT WITH IV LINE AT RFA#18 WITH ONGOING NS@75ML/HR INFUSING WELL, PATIENT IS A/OX4 ABLE TO MAKE NEEDS KNOWN, ON ROOM AIR SATURATING WELL, PATIENT KEPT CLEAN AND DRY ALL NEEDS MET NPO AFTER MN. PARACENTESIS TOMORROW MORNING. HOLD HEPARIN IN AM . WILL CONTINUE TO MONITOR / ASSIST
[2022-01-12 18:44] LABS: CALCIUM, SERUM 8.5 mg/dL (8.5-10.1); CREATININE 0.8 mg/dL (0.6-1.3); POTASSIUM 3.4 mmol/L (3.5-5.1)
--- NOTE | 2022-01-12 19:30 | NUR ---
RN OPENING NOTE PATIENT IN BED, AWAKE. PATIENT IS A/O X 4 ABLE TO MAKE NEEDS KNOWN. PATIENT IS ON RA, TOLERATING WELL. NO RESPIRATORY DISTRESS NOTED. PATIENT NOTED TO HAVE ABD DISTENTION, PENDING PARACENTESIS. PATIENT NPO AFTER MN EXCEPT MEDS. PATIENT HAS A RFA 17 G PATENT AND INTACT. TELE MONITOR READS SR [address] ME[address]: BED LOCKED AND IN LOWEST POSITION, CALL LIGHT WITHIN REACH, SIDE RAILS UP. WILL MONITOR PATIENT CLOSELY.
[2022-01-12 20:00] VITALS: BP 113/68
--- NOTE | 2022-01-12 21:06 | NUR ---
OBTAINED CONSENT FOR PARACENTESIS AND EDUCATED PATIENT REGARDING BEING NPO AFTER MIDNIGHT. Addendum: 01/12/22 at 2212 by SANTOS HAJI RN DRESSED NEVILLE SKIN TEAR/ECCHYMOSIS IT WAS BLEEDING
--- NOTE | 2022-01-12 21:30 | NUR ---
RN NOTE NOTIFIED MD REGARDING PLATELET TRENDING DOWN AND SODIUM LEVEL OF 120. PER MD, HOLD HEPARIN DOSE TONIGHT AND LOW SODIUM IS D/T OVER DILUTION- WILL GET FIXED WITH PARACENTESIS.
[2022-01-12 22:31] LABS: CALCIUM, SERUM 8.3 mg/dL (8.5-10.1); CREATININE 0.9 mg/dL (0.6-1.3); POTASSIUM 3.5 mmol/L (3.5-5.1)
[2022-01-13] VITALS: BP 118/44
[2022-01-13] MEDS: PIPERACILLIN /TAZOBACTAM 3.375 G in IV D5W 50 ML IV SCH ×4 (00:25→20:14)
[2022-01-13] MEDS: IV NS 0.9% 1,000 ML IV PRN (00:25)
--- NOTE | 2022-01-13 01:20 | NUR ---
ATIVAN IP GIVEN D/T PATIENT BEING DISORIENTED AND TRYING TO LEAVE THE UNIT. PATIENT HAS TREMORS PRESENT ON HIS HANDS. PATIENT IS ALSO HALLUCINATING. PATIENT GOING THROUGH WITHDRAWAL. PATIENT EXPERIENCING SOME ANXIETY REGARDING MISSING HIS PARACENTESIS. PATIENT BACK TO BED NOW, AND REASSURED PATIENT THAT HE WILL NOT MISS HIS PROCEDURE.
[2022-01-13 04:00] VITALS: BP 109/66
[2022-01-13] MEDS: VANCOMYCIN 0.75 GM in IV D5W 250 ML IV SCH ×3 (06:43→22:00)
[2022-01-13 06:49] LABS: BASOPHILS % (AUTO) 0.9 % (0.0-2.0); EOSINOPHILS % (AUTO) 3.1 % (0.0-6.0); HEMATOCRIT 32 % (39-51); HEMOGLOBIN 11.1 g/dL (13.5-17.5); LYMPHOCYTES # (AUTO) 0.7 K/uL (0.8-4.8); LYMPHOCYTES % (AUTO) 14.1 % (20.0-44.0); MEAN CORPUSCULAR HGB CONC 34 g/dl (31.0-36.0); MEAN CORPUSCULAR VOLUME 103 fL (80-96); MONOCYTES # (AUTO) 0.6 K/uL (0.1-1.30); MONOCYTES % (AUTO) 12.2 % (2.0-12.0); NEUTROPHILS # (AUTO) 3.7 K/uL (1.8-8.9); NEUTROPHILS % (AUTO) 69.7 % (43.0-81.0); PLATELET COUNT (AUTO) 62 K/uL (150-450); RED BLOOD CELL COUNT(AUTO) 3.13 MIL/uL (4.5-6.0); WHITE BLOOD COUNT (AUTO) 5.3 K/uL (4.3-11.0)
[2022-01-13 06:58] LABS: CREATININE 0.8 mg/dL (0.6-1.3); MAGNESIUM 1.5 mg/dL (1.8-2.4); PHOSPHORUS 2.4 mg/dL (2.5-4.9); POTASSIUM 3.5 mmol/L (3.5-5.1)
--- NOTE | 2022-01-13 07:07 | NUR ---
RN CLOSING NOTE PATIENT IN BED, EYES CLOSED. EASILY AWAKENED WITH VERBAL AND TOUCH STIMULI. PATIENT IS ABLE TO MAKE NEEDS KNOWN, A/O X 3 WITH PERIODS OF CONFUSION D/T WITHDRAWALS. PATIENT IS ON RA, TOLERATING WELL. NO SOB NOTED. PATIENT IS SR 65 WITH PVC. MAINTAINED NPO STATUS THROUGHOUT THE SHIFT. PATIENT'S RFA 18 G STILL PATENT AND INTACT, VANCO ONGOING AT THIS TIME. SAFETY MEASURES IN PLACE: BED LOCKED AND IN LOWEST POSITION, CALL LIGHT WITHIN REACH, SIDE RAILS UP. WILL ENDORSE TO DAY SHIFT NURSE FOR AMINATA.
[2022-01-13 08:00] VITALS: BP 111/71
[2022-01-13] MEDS: HEPARIN SODIUM, PORCINE 5000 UNITS/1 ML VIAL SQ SCH ×2 (09:00→21:00)
[2022-01-13] MEDS: CHLORDIAZEPOXIDE HCL 25 MG CAPSULE PO SCH ×2 (09:00→16:53)
[2022-01-13] MEDS: ESCITALOPRAM OXALATE (10 MG) 10 MG TABLET PO SCH (09:00)
[2022-01-13] MEDS: PROPRANOLOL LA 60 MG CAP.SA.24H PO SCH (09:00)
[2022-01-13] MEDS: RIFAXIMIN 550 MG TABLET PO SCH ×2 (09:00→12:44)
[2022-01-13 12:00] VITALS: BP 113/68
[2022-01-13] MEDS ORDERED: MAGNESIUM OXIDE 400 MG TABLET PO ONE (12:30)
[2022-01-13] MEDS: PANTOPRAZOLE 40 MG TABLET.DR PO SCH (12:44)
[2022-01-13] MEDS: NICOTINE PATCH (21MG) 21 MG PATCH.TD24 TD SCH (12:44)
[2022-01-13] MEDS: FOLIC ACID 1 MG TABLET PO SCH (12:45)
[2022-01-13] MEDS: THIAMINE HCL 100 MG TABLET PO SCH (12:45)
[2022-01-13] MEDS ORDERED: Sodium Phosphate 15 MMOL in IV NS 0.9% 245 ML IV SCH (14:00)
[2022-01-13 15:51] VITALS: BP 93/60
[2022-01-13] MEDS: FUROSEMIDE 40 MG TABLET PO SCH (16:00)
[2022-01-13] MEDS: SPIRONOLACTONE 25 MG TABLET PO SCH (16:00)
[2022-01-13] MEDS: IV NS 0.9% 1,000 ML IV SCH (16:53)
--- NOTE | 2022-01-13 18:00 | NUR ---
received pt. in am.vs stable.initially npo,had paracentesis.6050 ml. fliuid drained from abdomen.tadriana in ,mg replacement given as well as sodium phosphate which is still infusing. and orders written 1 bottle of fluid taken to lab for cytology.friend in to visit.nestor wright got in touch with friend.
--- NOTE | 2022-01-13 19:25 | NUR ---
ASSET MANAGEMENT ANALYST OPENING NOTES RECEIVED PATIENT IN BED; AWAKE, ALERT AND ORIENTED X3. WITH PERIODS OF CONFUSION. BREATHING IS EVEN AND UNLABORED. IN NO ACUTE DISTRESS NOTED. DENIES ANY PAIN OR DISCOMFORT OF THIS TIME. ON ROOM AIR, TOLERATING WELL. WITH IV ACCESS ON RFA G#18 INFUSING WITH NS 1L REGULATED AT 50 ML/HR; PATENT, INTACT MARTÍNEZ FLUSHES WELL. ON TELEMETRY MONITORING WITH READING OF SINUS RHYTHM HR 69 BPM. ABLE TO MAKE NEEDS KNOWN. SAFETY MEASURES IMPLEMENTED: CALL BUTTON AND TABLE WITHIN EASY REACH, SIDE RAILS UP X2, BED IN LOWEST LOCKED POSITION. WILL CONTINUE PLAN OF CARE.
[2022-01-13 20:00] VITALS: BP_SYST 100; BP_SYST 109; BP_DIAS 54; BP_DIAS 62
[2022-01-14] VITALS: BP 109/62
[2022-01-14] MEDS: PIPERACILLIN /TAZOBACTAM 3.375 G in IV D5W 50 ML IV SCH ×5 (00:19→23:35)
[2022-01-14 04:00] VITALS: BP 103/63
[2022-01-14] MEDS: VANCOMYCIN 0.75 GM in IV D5W 250 ML IV SCH ×3 (06:00→21:00)
--- NOTE | 2022-01-14 07:10 | NUR ---
CASH ANALYST CLOSING NOTE PATIENT IS IN BED; AWAKE, ALERT AND ORIENTED X3 WITH PERIODS OF CONFUSION. PATIENT IS ON ROOM AIR, TOLERATING WELL. NO SOB NOTED. ON TELEMETRY MONITORING WITH READING OF SR 67 WITH BBB. WITH IV ACCESS ON RFA G18; PATENT AND INTACT. SAFETY MEASURES IN PLACED. ENDORSED TO MORNING SHIFT NURSE FOR AMINATA.
[2022-01-14 07:25] LABS: BASOPHILS % (AUTO) 0.6 % (0.0-2.0); EOSINOPHILS % (AUTO) 2.7 % (0.0-6.0); HEMATOCRIT 31 % (39-51); LYMPHOCYTES # (AUTO) 0.6 K/uL (0.8-4.8); LYMPHOCYTES % (AUTO) 10.6 % (20.0-44.0); MEAN CORPUSCULAR HGB CONC 35 g/dl (31.0-36.0); MEAN CORPUSCULAR VOLUME 104 fL (80-96); MONOCYTES # (AUTO) 0.8 K/uL (0.1-1.30); MONOCYTES % (AUTO) 14.4 % (2.0-12.0); NEUTROPHILS % (AUTO) 71.7 % (43.0-81.0); PLATELET COUNT (AUTO) 57 K/uL (150-450); RED BLOOD CELL COUNT(AUTO) 3.01 MIL/uL (4.5-6.0); WHITE BLOOD COUNT (AUTO) 5.6 K/uL (4.3-11.0)
--- NOTE | 2022-01-14 07:30 | NUR ---
ms rn receive on bed,awake,alert,oriented x3,not in any form of distress, respirations even and unlabored,no sob noted, denies pain at this time, abdomen distended,still a little shaky,all needs attended.
[2022-01-14 08:00] VITALS: BP 109/68
[2022-01-14 08:01] LABS: CALCIUM, SERUM 8.8 mg/dL (8.5-10.1); CREATININE 0.9 mg/dL (0.6-1.3); MAGNESIUM 1.4 mg/dL (1.8-2.4); PHOSPHORUS 3.3 mg/dL (2.5-4.9); POTASSIUM 3.1 mmol/L (3.5-5.1)
--- NOTE | 2022-01-14 08:30 | NUR ---
ms cabrera breakfast served,due meds given,tolerated well.
[2022-01-14] MEDS: THIAMINE HCL 100 MG TABLET PO SCH (08:52)
[2022-01-14] MEDS: RIFAXIMIN 550 MG TABLET PO SCH ×2 (08:52→18:09)
[2022-01-14] MEDS: CHLORDIAZEPOXIDE HCL 25 MG CAPSULE PO SCH ×2 (08:52→18:09)
[2022-01-14] MEDS: FUROSEMIDE 40 MG TABLET PO SCH (08:52)
[2022-01-14] MEDS: SPIRONOLACTONE 25 MG TABLET PO SCH (08:53)
[2022-01-14] MEDS: ESCITALOPRAM OXALATE (10 MG) 10 MG TABLET PO SCH (08:53)
[2022-01-14] MEDS: NICOTINE PATCH (21MG) 21 MG PATCH.TD24 TD SCH (08:53)
[2022-01-14] MEDS: PANTOPRAZOLE 40 MG TABLET.DR PO SCH (08:55)
[2022-01-14] MEDS: HEPARIN SODIUM, PORCINE 5000 UNITS/1 ML VIAL SQ SCH ×2 (09:00→21:00)
--- NOTE | 2022-01-14 09:00 | NUR ---
ms rn was seen by manpower development manager w/ order to hold heparin at this time, called rx for vanco iv held last night due to level high, will monitor patient.
[2022-01-14] MEDS: FOLIC ACID 1 MG TABLET PO SCH (11:23)
[2022-01-14] MEDS: PROPRANOLOL LA 60 MG CAP.SA.24H PO SCH (11:23)
[2022-01-14 12:00] VITALS: BP 103/63
[2022-01-14] MEDS ORDERED: MAGNESIUM OXIDE 400 MG TABLET PO ONE ×2 (12:00→14:00)
[2022-01-14] MEDS: IV NS 0.9% 1,000 ML IV SCH (12:11)
[2022-01-14] MEDS: POTASSIUM CHLORIDE 20 MEQ TAB.PRT.SR PO SCH ×2 (12:11→13:17)
[2022-01-14 16:00] VITALS: BP 91/52
--- NOTE | 2022-01-14 18:34 | NUR ---
ms rn on bed, all needs attended.
--- NOTE | 2022-01-14 19:57 | NUR ---
INVESTIGATOR FRAUD OPENING NOTES PATIENT IS IN BED; AWAKE, ALERT AND ORIENTED X3 WITH PERIODS OF CONFUSION. PATIENT IS ON ROOM AIR, TOLERATING WELL. NO SOB NOTED. ON TELEMETRY MONITORING WITH READING OF SR 72 WITH BBB. WITH IV ACCESS ON RFA G18; PATENT AND INTACT. WHEN ENDORSMENT PT COMPLAINED OF NOT GIVING BED CRUZ FOR 35MIN.I TOLD IM SORRY,I WILL GET A BEDPAN RIGHT NOW. SAFETY MEASURES IN PLACED.CONTINUE TO MONITOR.
[2022-01-15 03:16] VITALS: BP 96/58
[2022-01-15] MEDS: PIPERACILLIN /TAZOBACTAM 3.375 G in IV D5W 50 ML IV SCH ×3 (05:21→17:52)
[2022-01-15] MEDS: IV NS 0.9% 1,000 ML IV SCH (05:38)
--- NOTE | 2022-01-15 06:44 | NUR ---
CHARGE MACHINE OPERATOR CLOSING NOTE PATIENT IS IN BED; AWAKE, ALERT AND ORIENTED X3 WITH PERIODS OF CONFUSION. PATIENT IS ON ROOM AIR, TOLERATING WELL. NO SOB/DISTRESS NOTED. ON TELEMETRY MONITORING WITH READING OF SR 70 WITH BBB.IV ACCESS ON RFA G18; PATENT AND INTACT. SAFETY MEASURES IN PLACED. ENDORSED TO NEXT SHIFT.
[2022-01-15 06:53] LABS: BASOPHILS # (AUTO) 0.1 K/uL (0.0-0.2); BASOPHILS % (AUTO) 1.3 % (0.0-2.0); EOSINOPHILS % (AUTO) 3.6 % (0.0-6.0); HEMATOCRIT 32 % (39-51); LYMPHOCYTES # (AUTO) 0.6 K/uL (0.8-4.8); LYMPHOCYTES % (AUTO) 11.6 % (20.0-44.0); MEAN CORPUSCULAR HGB CONC 35 g/dl (31.0-36.0); MEAN CORPUSCULAR VOLUME 104 fL (80-96); MONOCYTES # (AUTO) 0.8 K/uL (0.1-1.30); MONOCYTES % (AUTO) 14.9 % (2.0-12.0); NEUTROPHILS # (AUTO) 3.8 K/uL (1.8-8.9); NEUTROPHILS % (AUTO) 68.6 % (43.0-81.0); PLATELET COUNT (AUTO) 61 K/uL (150-450); RED BLOOD CELL COUNT(AUTO) 3.05 MIL/uL (4.5-6.0); WHITE BLOOD COUNT (AUTO) 5.5 K/uL (4.3-11.0)
[2022-01-15 07:28] LABS: CALCIUM, SERUM 8.8 mg/dL (8.5-10.1); MAGNESIUM 1.5 mg/dL (1.8-2.4); PHOSPHORUS 3.2 mg/dL (2.5-4.9); POTASSIUM 3.2 mmol/L (3.5-5.1)
[2022-01-15] MEDS: PANTOPRAZOLE 40 MG TABLET.DR PO SCH (07:29)
--- NOTE | 2022-01-15 07:46 | NUR ---
JR. JAVA DEVELOPER OPENING NOTES PATIENT AWAKE IN BED. ALERT AND ORIENTED TIMES 3. NO PAIN NOTED. NO SOB NOTED. NO DISTRESS NOTED. IV ACCESS ON THE RIGHT FOREARM G 18 INTACT AND PATENT. RUNNING NS AT 75 ML/HR. ON TELE MONITOR. READING SR . ABLE TO MAKE NEEDS KNOWN. CALL LIGHT AND TABLE IN REACH. BED LOCKED IN THE LOWEST POSITION AND LOCKED . WILL CONTINUE TO MONITOR.
[2022-01-15 07:49] LABS: ALBUMIN 2.6 g/dL (3.4-5.0); BILIRUBIN,TOTAL 3.2 mg/dL (0.2-1.0); TOTAL PROTEIN, SERUM 5.8 g/dL (6.4-8.2)
[2022-01-15 08:00] VITALS: BP 102/62
[2022-01-15] MEDS: RIFAXIMIN 550 MG TABLET PO SCH ×2 (08:30→17:07)
[2022-01-15] MEDS: FOLIC ACID 1 MG TABLET PO SCH (08:30)
[2022-01-15] MEDS: NICOTINE PATCH (21MG) 21 MG PATCH.TD24 TD SCH (08:30)
[2022-01-15] MEDS: SPIRONOLACTONE 25 MG TABLET PO SCH (08:30)
[2022-01-15] MEDS: FUROSEMIDE 40 MG TABLET PO SCH (08:30)
[2022-01-15] MEDS: THIAMINE HCL 100 MG TABLET PO SCH (08:30)
[2022-01-15] MEDS: PROPRANOLOL LA 60 MG CAP.SA.24H PO SCH (08:31)
[2022-01-15] MEDS: ESCITALOPRAM OXALATE (10 MG) 10 MG TABLET PO SCH (08:31)
[2022-01-15] MEDS: CHLORDIAZEPOXIDE HCL 25 MG CAPSULE PO SCH ×2 (08:31→17:07)
[2022-01-15] MEDS: VANCOMYCIN 0.75 GM in IV D5W 250 ML IV SCH ×2 (08:55→23:24)
[2022-01-15] MEDS ORDERED: MAGNESIUM OXIDE 400 MG TABLET PO ONE (10:00)
[2022-01-15] MEDS ORDERED: POTASSIUM CHLORIDE 20 MEQ TAB.PRT.SR PO SCH (10:00)
[2022-01-15] MEDS: HEPARIN SODIUM, PORCINE 5000 UNITS/1 ML VIAL SQ SCH ×2 (11:23→21:00)
[2022-01-15 12:00] VITALS: BP 89/51
[2022-01-15] MEDS ORDERED: ALBUMIN 25% 12.5 GM/50 ML BOTTLE IV ONE (15:00)
[2022-01-15 16:00] VITALS: BP 128/79
[2022-01-15] MEDS ORDERED: LORAZEPAM 1 MG TABLET PO PRN (17:30)
--- NOTE | 2022-01-15 19:30 | NUR ---
SKULL CHOPPER CLOSING NOTES PATIENT AWAKE IN BED. ALERT AND ORIENTED TIMES 3. NO PAIN NOTED. NO SOB NOTED. NO DISTRESS NOTED. IV ACCESS ON THE LEFT FOREARM G 18 INTACT AND PATENT. RUNNING NS AT 75 ML/HR. ON TELE MONITOR. READING SR . ABLE TO MAKE NEEDS KNOWN. ALL DUE MEDS GIVEN ORDERED. CALL LIGHT AND TABLE IN REACH. BED LOCKED IN THE LOWEST POSITION AND LOCKED . WILL ENDORSE FOR AMINATA.
--- NOTE | 2022-01-15 19:32 | NUR ---
KILN DOOR REPAIRER OPENING NOTE PATIENT IS IN BED; AWAKE, ALERT AND ORIENTED X3 WITH PERIODS OF CONFUSION. PATIENT IS ON ROOM AIR, TOLERATING WELL. NO SOB/DISTRESS NOTED. ON TELEMETRY MONITORING WITH READING OF SR 72 WITH BBB.IV ACCESS ON RFA G18; PATENT AND INTACT. SAFETY MEASURES IN PLACED.WILL CONTINUE TO MONITOR
[2022-01-15 20:00] VITALS: BP 94/56
[2022-01-16] VITALS: BP 93/55
[2022-01-16] MEDS: PIPERACILLIN /TAZOBACTAM 3.375 G in IV D5W 50 ML IV SCH ×4 (00:36→19:21)
[2022-01-16 04:00] VITALS: BP 92/51
[2022-01-16 06:36] LABS: BASOPHILS # (AUTO) 0.1 K/uL (0.0-0.2); BASOPHILS % (AUTO) 1.4 % (0.0-2.0); EOSINOPHILS % (AUTO) 3.7 % (0.0-6.0); HEMATOCRIT 30 % (39-51); HEMOGLOBIN 10.5 g/dL (13.5-17.5); LYMPHOCYTES # (AUTO) 0.6 K/uL (0.8-4.8); LYMPHOCYTES % (AUTO) 12.4 % (20.0-44.0); MEAN CORPUSCULAR HGB CONC 35 g/dl (31.0-36.0); MEAN CORPUSCULAR VOLUME 104 fL (80-96); MONOCYTES # (AUTO) 0.8 K/uL (0.1-1.30); MONOCYTES % (AUTO) 15.5 % (2.0-12.0); NEUTROPHILS # (AUTO) 3.4 K/uL (1.8-8.9); PLATELET COUNT (AUTO) 67 K/uL (150-450); RED BLOOD CELL COUNT(AUTO) 2.88 MIL/uL (4.5-6.0); WHITE BLOOD COUNT (AUTO) 5.1 K/uL (4.3-11.0)
--- NOTE | 2022-01-16 07:00 | NUR ---
WAGE ADJUSTER OPENING NOTES PATIENT LAYING IN BED, A/O X 4, ABLE TO MAKE NEEDS KNOWN. TOLERATING WELL ON ROOM AIR WITH NO S/S RESPIRATORY DISTRESS OR SOB. NO COMPLAINTS OF PAIN OR DISCOMFORT AT THIS TIME. L FA # 18 G IV CLEAN, INTACT, AND FLUSHING WELL WITH NS @ 75 ML/HR. TELE MONITOR IN PLACE READING SR 66. SAFETY MEASURES IN PLACE: BED IN LOWEST LOCKED POSITION, SIDE RAILS UP X 2, CALL LIGHT WITHIN REACH. WILL CONTINUE TO MONITOR.
--- NOTE | 2022-01-16 07:02 | NUR ---
PERSONAL FINANCIAL PLANNER CLOSING NOTES PATIENT AWAKE IN BED.RM AIR ISREAL WELL.NO SIGN SOB/DISTRESS NOTED.BREATHING EVEN AND UNLABORED.NO COMPLAIN OF PAIN/DISCOMFORT.. IV ACCESS ON LFA #18G INTACT AND PATENT. RUNNING NS AT 75 ML/HR.ALL DUE MEDS GIVEN ORDERED. CALL LIGHT WITHIN REACHBED LOCKED IN THE LOWEST POSITION . WILL ENDORSE FOR AMINATA.
[2022-01-16 07:28] LABS: CALCIUM, SERUM 8.8 mg/dL (8.5-10.1); CREATININE 0.8 mg/dL (0.6-1.3); MAGNESIUM 1.5 mg/dL (1.8-2.4); POTASSIUM 3.4 mmol/L (3.5-5.1)
[2022-01-16] MEDS: THIAMINE HCL 100 MG TABLET PO SCH (08:13)
[2022-01-16] MEDS: PANTOPRAZOLE 40 MG TABLET.DR PO SCH (08:13)
[2022-01-16] MEDS: NICOTINE PATCH (21MG) 21 MG PATCH.TD24 TD SCH (08:13)
[2022-01-16] MEDS: RIFAXIMIN 550 MG TABLET PO SCH ×2 (08:14→17:22)
[2022-01-16] MEDS: FOLIC ACID 1 MG TABLET PO SCH (08:14)
[2022-01-16] MEDS: SPIRONOLACTONE 25 MG TABLET PO SCH (08:14)
[2022-01-16] MEDS: ESCITALOPRAM OXALATE (10 MG) 10 MG TABLET PO SCH (08:14)
[2022-01-16] MEDS: PROPRANOLOL LA 60 MG CAP.SA.24H PO SCH (08:36)
[2022-01-16] MEDS: HEPARIN SODIUM, PORCINE 5000 UNITS/1 ML VIAL SQ SCH ×2 (08:36→20:36)
[2022-01-16] MEDS: FUROSEMIDE 40 MG TABLET PO SCH (08:36)
[2022-01-16] MEDS: VANCOMYCIN 0.75 GM in IV D5W 250 ML IV SCH ×2 (08:38→20:35)
[2022-01-16] MEDS ORDERED: MAGNESIUM OXIDE 400 MG TABLET PO ONE (10:00)
[2022-01-16] MEDS ORDERED: POTASSIUM CHLORIDE 20 MEQ POWDER PACKET NG SCH (10:00)
[2022-01-16] MEDS ORDERED: IV NS 0.9% 500 ML IV ONE ×3 (11:00→17:30)
--- NOTE | 2022-01-16 19:00 | NUR ---
SALES RECORD CLERK CLOSING NOTES PATIENT LAYING IN BED, A/O X 4, ABLE TO MAKE NEEDS KNOWN. TOLERATING WELL ON ROOM AIR WITH NO SOB OR S/S RESPIRATORY DISTRESS. NO COMPLAINTS OF PAIN OR DISCOMFORT AT THIS TIME. L FA # 18 G IV CLEAN, INTACT, AND FLUSHING WELL WITH NS @ 75 ML/HR. TELE READING SB HR 58. SAFETY MEASURES IN PLACE: BED IN LOWEST LOCKED POSITION, SIDE RAILS UP X 2, CALL LIGHT WITHIN REACH. ALL NEEDS MET. WILL ENDORSE TO SHAPER AND PRESSER FOR AMINATA.
--- NOTE | 2022-01-16 19:40 | NUR ---
TELE/RN OPENING NOTE RECEIVED PATIENT RESTING IN BED. AWAKE, ALERT AND ORIENTED X 3. ABLE TO MAKE NEEDS KNOWN. DENIES PAIN AT THIS TIME. CONTINUES ON ROOM AIR WITH NO S/SX OF RESPIRATORY DISTRESS NOTED. IV ACCESS TO LEFT FOREARM #18G INTACT AND PATENT. COMPLETED LAST NS BOLUS WITH CURRENT BP READING 100/54. CONTINUES ON IVF NS @ 75ML/HR. CONTINUES ON IV ABX. CONTINUES ON TELE MONITOR WITH CURRENT READING SB HR 56. CALL LIGHT WITHIN REACH. ASPIRATION, FALL AND SAFETY PRECAUTIONS MAINTAINED. ALL NEEDS ATTENDED TO AT THIS TIME.
[2022-01-16 20:00] VITALS: BP 100/54
[2022-01-17] VITALS: BP 108/42
[2022-01-17] MEDS: PIPERACILLIN /TAZOBACTAM 3.375 G in IV D5W 50 ML IV SCH ×2 (00:40→05:37)
[2022-01-17 04:00] VITALS: BP 115/44
--- NOTE | 2022-01-17 06:30 | NUR ---
TELE/RN CLOSING NOTE PATIENT CURRENTLY SLEEPING IN BED. ALERT AND ORIENTED X 3. ABLE TO MAKE NEEDS KNOWN. DENIES PAIN AT THIS TIME. CONTINUES ON ROOM AIR WITH NO S/SX OF RESPIRATORY DISTRESS NOTED. IV ACCESS TO LEFT FOREARM #18G INTACT AND PATENT. CONTINUES ON IV ABX. CONTINUES ON TELE MONITOR WITH CURRENT READING SR WITH BBB HR 60. CALL LIGHT WITHIN REACH. ASPIRATION, FALL AND SAFETY PRECAUTIONS MAINTAINED. WILL ENDORSE PLAN OF CARE TO ONCOMING SHIFT.
[2022-01-17 07:00] LABS: CALCIUM, SERUM 8.8 mg/dL (8.5-10.1); CREATININE 0.8 mg/dL (0.6-1.3); MAGNESIUM 1.5 mg/dL (1.8-2.4); PHOSPHORUS 3.6 mg/dL (2.5-4.9); POTASSIUM 3.7 mmol/L (3.5-5.1)
[2022-01-17 07:32] LABS: BASOPHILS # (AUTO) 0.1 K/uL (0.0-0.2); BASOPHILS % (AUTO) 1.2 % (0.0-2.0); EOSINOPHILS % (AUTO) 2.9 % (0.0-6.0); HEMATOCRIT 30 % (39-51); HEMOGLOBIN 10.3 g/dL (13.5-17.5); LYMPHOCYTES # (AUTO) 0.7 K/uL (0.8-4.8); LYMPHOCYTES % (AUTO) 13.3 % (20.0-44.0); MEAN CORPUSCULAR HGB CONC 35 g/dl (31.0-36.0); MEAN CORPUSCULAR VOLUME 104 fL (80-96); MONOCYTES # (AUTO) 0.9 K/uL (0.1-1.30); MONOCYTES % (AUTO) 16.4 % (2.0-12.0); NEUTROPHILS # (AUTO) 3.6 K/uL (1.8-8.9); NEUTROPHILS % (AUTO) 66.2 % (43.0-81.0); PLATELET COUNT (AUTO) 75 K/uL (150-450); RED BLOOD CELL COUNT(AUTO) 2.85 MIL/uL (4.5-6.0); WHITE BLOOD COUNT (AUTO) 5.4 K/uL (4.3-11.0)
--- NOTE | 2022-01-17 07:52 | NUR ---
QUALITY ASSURANCE TEST PROGRAM MANAGER OPENING NOTE Patient in bed, asleep. A/O x 3. On room air, breathing evenly and unlabored. No SOB or s/s of distress noted. IV access on LFA #18 SL, intact and patent. On tele monitoring showing HR. SR on the 60's. Safety precautions in place: bed in low, locked position; siderails up x 2; call light within reach. Will continue to monitor.
[2022-01-17 08:00] VITALS: BP 106/52
[2022-01-17] MEDS: HEPARIN SODIUM, PORCINE 5000 UNITS/1 ML VIAL SQ SCH ×2 (09:00→20:49)
[2022-01-17] MEDS: FUROSEMIDE 40 MG TABLET PO SCH (09:00)
[2022-01-17] MEDS: PROPRANOLOL LA 60 MG CAP.SA.24H PO SCH (09:00)
[2022-01-17] MEDS: SPIRONOLACTONE 25 MG TABLET PO SCH ×2 (09:00→10:13)
[2022-01-17] MEDS: RIFAXIMIN 550 MG TABLET PO SCH ×2 (09:15→17:47)
[2022-01-17] MEDS: FOLIC ACID 1 MG TABLET PO SCH (09:15)
[2022-01-17] MEDS: ESCITALOPRAM OXALATE (10 MG) 10 MG TABLET PO SCH (09:15)
[2022-01-17] MEDS: NICOTINE PATCH (21MG) 21 MG PATCH.TD24 TD SCH (09:15)
[2022-01-17] MEDS: THIAMINE HCL 100 MG TABLET PO SCH (09:15)
[2022-01-17] MEDS: PANTOPRAZOLE 40 MG TABLET.DR PO SCH (09:15)
[2022-01-17] MEDS: VANCOMYCIN 0.75 GM in IV D5W 250 ML IV SCH (09:29)
--- NOTE | 2022-01-17 12:10 | NUR ---
RN NOTE Patient's BP is 87/47, HR is 56. Dr. Bowen Morrissey notified, awaiting for new orders.
--- NOTE | 2022-01-17 12:30 | NUR ---
RN NOTE Dr. Bowen Morrissey ordered Midodrine 5 mg TID for BP management.
[2022-01-17] MEDS: MIDODRINE HCL (5MG) 5 MG TABLET PO SCH ×2 (12:33→17:47)
[2022-01-17] MEDS: IV NS 0.9% 1,000 ML IV PRN (13:02)
[2022-01-17] MEDS ORDERED: MAGNESIUM OXIDE 400 MG TABLET PO ONE (14:00)
[2022-01-17 16:00] VITALS: BP 92/50
--- NOTE | 2022-01-17 19:20 | NUR ---
RN opening notes Pt is watching TV in bed comfortably. Pt is alert and orientedX3. On room air. No SOB. No S/S of distress noted. IV site at LFA# 18 is clean, intact and infusing well NS@ 50 ml/hr. tele monitor showed S. chelsie hr at 58. safety precautions is maintained. Bed at low position, brakes locked, side rails upX3, hob elevated, urinal at the bedside, bed alarm is on and call light is within reach. Will continue to monitor.
--- NOTE | 2022-01-17 19:22 | NUR ---
WOOD PANEL INSPECTOR CLOSING NOTE Patient in bed, resting. A/O x 3, able to make needs known. Stable on room air, breathing evenly and unlabored. No SOB or s/s of distress noted. IV access on LFA #18 infusing NS at 50 ml/hr. On tele monitoring showing sinus bradycardia HR 57. All needs attended to. Due meds given. Safety precautions maintained: bed in low, locked position; siderails up x 2; call light within reach. Will endorse to lieutenant shift supervisor nurse for AMINATA.
[2022-01-17 20:00] VITALS: BP 102/62
--- NOTE | 2022-01-17 20:51 | NUR ---
RN notes Held heparin for low platelet. Charge nurse is aware and informed.
[2022-01-18] VITALS: BP_SYST 110; BP_SYST 112; BP_DIAS 62; BP_DIAS 64
[2022-01-18 04:00] VITALS: BP 109/65
[2022-01-18] MEDS: IV NS 0.9% 1,000 ML IV PRN (05:14)
--- NOTE | 2022-01-18 06:30 | NUR ---
RN closing notes Pt is resting in bed comfortably. Pt is alert and orientedX3. On room air. No SOB. No S/S of distress noted. IV site at LFA# 18 is clean, intact and infusing well NS@ 50 ml/hr. tele monitor showed SRaoulbardy hr 58. Kept Pt clean, dry and comfortable. safety precautions is maintained. Bed at low position, brakes locked, side rails upX3, hob elevated, urinal at the bedside, bed alarm is on and call light is within reach. Will endorse to am nurse for AMINATA.
[2022-01-18 07:14] LABS: BASOPHILS # (AUTO) 0.1 K/uL (0.0-0.2); BASOPHILS % (AUTO) 1.3 % (0.0-2.0); EOSINOPHILS % (AUTO) 2.4 % (0.0-6.0); HEMATOCRIT 32 % (39-51); HEMOGLOBIN 11.3 g/dL (13.5-17.5); LYMPHOCYTES # (AUTO) 0.8 K/uL (0.8-4.8); LYMPHOCYTES % (AUTO) 16.4 % (20.0-44.0); MEAN CORPUSCULAR HGB CONC 35 g/dl (31.0-36.0); MEAN CORPUSCULAR VOLUME 104 fL (80-96); MONOCYTES # (AUTO) 0.9 K/uL (0.1-1.30); MONOCYTES % (AUTO) 17.9 % (2.0-12.0); PLATELET COUNT (AUTO) 84 K/uL (150-450); RED BLOOD CELL COUNT(AUTO) 3.13 MIL/uL (4.5-6.0); WHITE BLOOD COUNT (AUTO) 4.8 K/uL (4.3-11.0)
[2022-01-18 07:31] LABS: CALCIUM, SERUM 9.2 mg/dL (8.5-10.1); CREATININE 0.7 mg/dL (0.6-1.3); MAGNESIUM 1.5 mg/dL (1.8-2.4); PHOSPHORUS 3.7 mg/dL (2.5-4.9); POTASSIUM 3.9 mmol/L (3.5-5.1)
--- NOTE | 2022-01-18 07:33 | NUR ---
DISC PAD KNOCKOUT WORKER CLOSING NOTE Patient in bed, asleep. A/O x 3. On room air, breathing evenly and unlabored. No SOB or s/s of distress noted. IV access on LFA #18 infusing NS at 50 ml/hr. On tele monitoring showing sinus bradycardia, HR 58. Safety precautions in place: bed in low, locked position; siderails up x 2; call light within reach. Will continue to monitor. Addendum: 01/18/22 at 1905 by GIDEON VILLAFANA RN CORRECTION: DISC PAD KNOCKOUT WORKER OPENING NOTE
[2022-01-18 08:31] VITALS: BP 106/63
[2022-01-18] MEDS: HEPARIN SODIUM, PORCINE 5000 UNITS/1 ML VIAL SQ SCH ×2 (09:00→20:45)
[2022-01-18] MEDS: PROPRANOLOL LA 60 MG CAP.SA.24H PO SCH (09:00)
--- NOTE | 2022-01-18 09:00 | NUR ---
RN NOTE Propranolol 60 mg scheduled for 0900 held, patient's BP is 106/63 and HR is 61. Heparin also held, platelets is still low at 84. Charge nurse, Luis rubio. Will continue to monitor patient. Addendum: 01/18/22 at 1129 by GIDEON VILLAFANA RN ADD: Dr. Bowen Morrissey aware.
[2022-01-18] MEDS: ESCITALOPRAM OXALATE (10 MG) 10 MG TABLET PO SCH (09:26)
[2022-01-18] MEDS: THIAMINE HCL 100 MG TABLET PO SCH (09:26)
[2022-01-18] MEDS: NICOTINE PATCH (21MG) 21 MG PATCH.TD24 TD SCH (09:26)
[2022-01-18] MEDS: PANTOPRAZOLE 40 MG TABLET.DR PO SCH (09:26)
[2022-01-18] MEDS: RIFAXIMIN 550 MG TABLET PO SCH ×2 (09:26→17:33)
[2022-01-18] MEDS: SPIRONOLACTONE 25 MG TABLET PO SCH (09:27)
[2022-01-18] MEDS: FOLIC ACID 1 MG TABLET PO SCH (09:27)
[2022-01-18] MEDS: MIDODRINE HCL (5MG) 5 MG TABLET PO SCH ×3 (09:27→17:33)
[2022-01-18] MEDS: FUROSEMIDE 40 MG TABLET PO SCH (09:27)
[2022-01-18 12:04] VITALS: BP 103/62
[2022-01-18] MEDS: DULOXETINE HCL 30 MG CAPSULE.DR PO SCH (12:11)
[2022-01-18] MEDS: Magnesium 1GM/D5W 100ML PREMIX 100 ML IV SCH ×4 (12:12→15:08)
[2022-01-18 16:10] VITALS: BP 102/61
--- NOTE | 2022-01-18 19:05 | NUR ---
MANAGER PROCESS IMPROVEMENT CLOSING NOTE Patient in bed, resting. A/O x 3, able to make needs known. Stable on room air, breathing evenly and unlabored. No SOB or s/s of distress noted. IV access on LFA #18 infusing NS at 50 ml/hr. On tele monitoring showing SR with BBB, HR 66. Due meds given. All needs attended to. Safety precautions maintained: bed in low, locked position; siderails up x 2; call light within reach. Will endorse to speech language pathology assistant nurse for AMINATA.
--- NOTE | 2022-01-18 19:28 | NUR ---
THERAPIST OCCUPATIONAL OPENING NOTE Patient in bed, resting. A/O x 3, able to make needs known. Stable on room air, breathing evenly and unlabored. No SOB or s/s of distress noted. IV access on LFA #18 infusing NS at 50 ml/hr. On tele monitoring showing SR with BBB, HR 66. All needs attended to. Safety precautions maintained: bed in low, locked position; siderails up x 2; call light within reach. Will continue to monitor.
[2022-01-18 20:00] VITALS: BP 125/72
--- NOTE | 2022-01-18 20:46 | NUR ---
SHOP MECHANIC HELPER NOTES plt low at [address] Yuni ayala to hold dose. charge nurse aware.
[2022-01-18 22:22] LABS: BAND % (MANUAL) 1 % (0.0-5.0); EOSINOPHILS % (MANUAL) 1 % (0-4); LYMPHOCYTES % (MANUAL) 19 % (16-48); MONOCYTES % (MANUAL) 15 % (0-11.0); NEUTROPHILS % (MANUAL) 64 (42-76)
[2022-01-19 04:00] VITALS: BP 115/68
[2022-01-19 06:23] LABS: BASOPHILS # (AUTO) 0.2 K/uL (0.0-0.2); BASOPHILS % (AUTO) 3.8 % (0.0-2.0); EOSINOPHILS % (AUTO) 2.1 % (0.0-6.0); HEMATOCRIT 31 % (39-51); HEMOGLOBIN 10.9 g/dL (13.5-17.5); LYMPHOCYTES # (AUTO) 0.7 K/uL (0.8-4.8); LYMPHOCYTES % (AUTO) 14.6 % (20.0-44.0); MEAN CORPUSCULAR HGB CONC 35 g/dl (31.0-36.0); MEAN CORPUSCULAR VOLUME 103 fL (80-96); MONOCYTES # (AUTO) 0.7 K/uL (0.1-1.30); MONOCYTES % (AUTO) 14.8 % (2.0-12.0); NEUTROPHILS # (AUTO) 3.1 K/uL (1.8-8.9); NEUTROPHILS % (AUTO) 64.7 % (43.0-81.0); PLATELET COUNT (AUTO) 94 K/uL (150-450); RED BLOOD CELL COUNT(AUTO) 3.04 MIL/uL (4.5-6.0); WHITE BLOOD COUNT (AUTO) 4.8 K/uL (4.3-11.0)
--- NOTE | 2022-01-19 06:50 | NUR ---
SALSA DANCE INSTRUCTOR CLOSING NOTE Patient in bed, resting. A/O x 3, able to make needs known. Stable on room air, breathing evenly and unlabored. No SOB or s/s of distress noted. IV access on LFA #18 infusing NS at 50 ml/hr. On tele monitoring showing SR with BBB, HR 60S. All needs attended to. Safety precautions maintained: bed in low, locked position; side rails up x 2; call light within reach. Will endorse care to day shift.
--- NOTE | 2022-01-19 07:00 | NUR ---
RN OPENING NOTE- PT IN BED, QUIET WITHDRAWN, MINIMAL INTERACTION. VS STABLE , MAKES NEEDS KNOWN. DENIES PAIN AT PRESENT, ASCITES TO ABDOMEN, REPOSITIONED. SIDE RAILS UP, BED LOCKED, CALL LIGHT IN REACH. MONITOR / ASSIST
[2022-01-19 07:10] LABS: CALCIUM, SERUM 8.5 mg/dL (8.5-10.1); CREATININE 0.7 mg/dL (0.6-1.3); MAGNESIUM 1.9 mg/dL (1.8-2.4); PHOSPHORUS 3.8 mg/dL (2.5-4.9); POTASSIUM 3.9 mmol/L (3.5-5.1)
[2022-01-19 08:00] VITALS: BP 107/69
[2022-01-19] MEDS: PANTOPRAZOLE 40 MG TABLET.DR PO SCH (08:25)
[2022-01-19] MEDS: DULOXETINE HCL 30 MG CAPSULE.DR PO SCH (08:25)
[2022-01-19] MEDS: SPIRONOLACTONE 25 MG TABLET PO SCH (08:26)
[2022-01-19] MEDS: FOLIC ACID 1 MG TABLET PO SCH (08:26)
[2022-01-19] MEDS: THIAMINE HCL 100 MG TABLET PO SCH (08:26)
[2022-01-19] MEDS: RIFAXIMIN 550 MG TABLET PO SCH ×2 (08:26→17:07)
[2022-01-19] MEDS: FUROSEMIDE 40 MG TABLET PO SCH (08:28)
[2022-01-19] MEDS: PROPRANOLOL LA 60 MG CAP.SA.24H PO SCH (08:28)
[2022-01-19] MEDS: NICOTINE PATCH (21MG) 21 MG PATCH.TD24 TD SCH (08:28)
[2022-01-19] MEDS: MIDODRINE HCL (5MG) 5 MG TABLET PO SCH ×3 (08:28→17:07)
--- NOTE | 2022-01-19 08:43 | NUR ---
WOUND CARE CONSULT: PT SEEN FOR SKIN TEAR TO RT ARM NEAR ELBOW. PT REFUSED SKIN ASSESSMENT AT THIS TIME. REVIEWED CHART, NURSING DOCUMENTATION AND PHOTO WHICH INDICATES SKIN TEAR. RECOMMENDATIONS MADE FOR WOUND CARE AND SKIN PROTECTION. DISCUSSED WITH NURSING STAFF. MD IN AGREEMENT WITH PLAN OF CARE.
[2022-01-19 12:06] VITALS: BP 116/77
[2022-01-19 17:00] VITALS: BP 115/72
--- NOTE | 2022-01-19 18:25 | NUR ---
RN NOTE- NG TUBE 16 FR INSERTED AT THIS TIME PER MD ORDERS. FOR TF. PT TOLERATED WELL. ORDERED STAT CXR FOR PLACEMENT.
--- NOTE | 2022-01-19 18:43 | NUR ---
RN NOTE- XR TO ROOM. NG TUBE LOOPED IN ROOF OF MOUTH. REMOVED. WILL ENDORSE TO NOC SHIFT FOR SECOND ATTEMPT
--- NOTE | 2022-01-19 18:51 | NUR ---
RN CLOSING NOTE- PT REMAINS IN BED, QUIET WITHDRAWN, MINIMAL INTERACTION. FRIENDS VISITING, VS STABLE , NG TUBE REINSERTION PENDING FOR NOC SHIFT RN. EXPLAINED TO PT THE NEED FOR TF. VERBALIZED/UNDERSTOOD. MAKES NEEDS KNOWN. DENIES PAIN AT PRESENT, ASCITES TO ABDOMEN, REPOSITIONED. SIDE RAILS UP, BED LOCKED, CALL LIGHT IN REACH. MONITOR / ASSIST
--- NOTE | 2022-01-19 19:15 | NUR ---
RN OPENING NOTE PATIENT AWAKE IN BED. A/OX3. NO S/S OF DISTRESS, BREATHING W/O DIFFICULTY ON RM AIR. LFA #18 INTACT AND PATENT W/ NS 50ML/HR. TELE MONITOR REVEALS SR 77. SAFETY MEASURES IN PLACE: BED AT LOWEST POSITION, LOCKED, RAILS UP X2, CALL AZEVEDO WITHIN REACH. WILL CONTINUE TO MONITOR PATIENT.
[2022-01-19 20:00] VITALS: BP 109/69
--- NOTE | 2022-01-19 20:00 | NUR ---
RN NOTE NGT INSERTED IN RT NARIS AT 58 1/2. AFTER INSERTION, VERIFIED AT BEDSIDE BY STETHOSCOPE AND 60CC OF AIR. STAT CXR ORDER TO VERIFY PLACEMENT. WILL BEGIN FEEDING ORDERED UPON CXR VERIFICATION. PATIENT STABLE; WILL CONTINUE TO MONITOR.
--- NOTE | 2022-01-19 22:59 | NUR ---
RN NOTE CXR RESULTED SHOWING NGT PLACEMENT IS IN CORRECT POSITIONJ - THE STOMACH. WILL PROCEED TO BEGIN FEEDING PER MD ORDER. PATIENT STABLE; WILL CONTINUE TO MONITOR PATIENT.
[2022-01-19] MEDS: GLUCERNA 1.2 1,000 ML BOTTLE NG PRN (23:03)
[2022-01-20] VITALS: BP 134/85
[2022-01-20 04:00] VITALS: BP 139/83
[2022-01-20] MEDS: IV NS 0.9% 1,000 ML IV PRN (04:40)
[2022-01-20 06:36] LABS: BASOPHILS # (AUTO) 0.2 K/uL (0.0-0.2); BASOPHILS % (AUTO) 2.4 % (0.0-2.0); EOSINOPHILS % (AUTO) 1.6 % (0.0-6.0); HEMATOCRIT 33 % (39-51); HEMOGLOBIN 11.5 g/dL (13.5-17.5); LYMPHOCYTES # (AUTO) 0.8 K/uL (0.8-4.8); MEAN CORPUSCULAR HGB CONC 35 g/dl (31.0-36.0); MEAN CORPUSCULAR VOLUME 102 fL (80-96); MONOCYTES # (AUTO) 0.9 K/uL (0.1-1.30); MONOCYTES % (AUTO) 13.6 % (2.0-12.0); NEUTROPHILS # (AUTO) 4.5 K/uL (1.8-8.9); NEUTROPHILS % (AUTO) 70.4 % (43.0-81.0); PLATELET COUNT (AUTO) 119 K/uL (150-450); RED BLOOD CELL COUNT(AUTO) 3.24 MIL/uL (4.5-6.0); WHITE BLOOD COUNT (AUTO) 6.4 K/uL (4.3-11.0)
--- NOTE | 2022-01-20 06:59 | NUR ---
RN CLOSING NOTE PATIENT ASLEEP IN BED. A/OX3. NO S/S OF DISTRESS; BREATHING W/O DIFFICULTY ON ROOM AIR. LFA #18 INTACT AND PATENT W/ NS 50ML/HR. TELE REVEALS SR W/ BBB & PACs 82. NGT FEEDING GLUCERNA 1.2 @ 30ML/HR. SAFETY MEASURES IN PLACE: BED AT LOWEST POSITION, LOCKED, RAILS UP X3, CALL AZEVEDO WITHIN REACH. Addendum: 01/20/22 at 0732 by SHUBHAM CANCHOLA RN REPORT ENDORSED TO AND ACKNOWLEDGED BY RNROSA MARIA FOR AMINATA.
[2022-01-20 07:06] LABS: ALBUMIN 2.9 g/dL (3.4-5.0); CALCIUM, SERUM 8.7 mg/dL (8.5-10.1); CREATININE 0.8 mg/dL (0.6-1.3); MAGNESIUM 1.8 mg/dL (1.8-2.4); PHOSPHORUS 4.2 mg/dL (2.5-4.9); TOTAL PROTEIN, SERUM 5.9 g/dL (6.4-8.2)
--- NOTE | 2022-01-20 07:30 | NUR ---
RN OPENING NOTES RECEIVED PATIENT AWAKE IN BED. A/OX 2-3 WITH SLOW SPEECH. ON RA WITH NO S/SX OF RESP DISTRESS NOTED. NO COMPLAINT OF PAIN VERBALIZED AT THIS TIME. LFA #18 INTACT AND PATENT W/ NS RUNNING @ 50ML/HR. TELE READING SHOWS SR W/ BBB & PACs 82 BPM. NGT INTACT AND PATENT WITH GLUCERNA 1.2 @ 30ML/HR. NO RESIDUAL NOTED. SAFETY AND ASPIRATION PRECAUTIONS IN PLACE: BED AT LOWEST POSITION, LOCKED, HOB ELEVATED, RAILS UP X3, CALL LIGHT WITHIN REACH. SEIZURE PRECAUTIONS IN PLACE WITH SIDE RAILS PADDED. WILL CONTINUE TO MONITOR PATIENT.
--- NOTE | 2022-01-20 07:55 | NUR ---
RN NOTES SEEN BY DR ABEL
[2022-01-20 08:00] VITALS: BP 133/79
[2022-01-20] MEDS: FOLIC ACID 1 MG TABLET PO SCH (08:08)
[2022-01-20] MEDS: MIDODRINE HCL (5MG) 5 MG TABLET PO SCH ×3 (08:09→17:33)
[2022-01-20] MEDS: SPIRONOLACTONE 25 MG TABLET PO SCH (08:09)
[2022-01-20] MEDS: RIFAXIMIN 550 MG TABLET PO SCH ×2 (08:09→17:33)
[2022-01-20] MEDS: PANTOPRAZOLE 40 MG TABLET.DR PO SCH (08:10)
[2022-01-20] MEDS: THIAMINE HCL 100 MG TABLET PO SCH (08:10)
[2022-01-20] MEDS: DULOXETINE HCL 30 MG CAPSULE.DR PO SCH (08:10)
[2022-01-20] MEDS: NICOTINE PATCH (21MG) 21 MG PATCH.TD24 TD SCH (08:10)
[2022-01-20] MEDS: FUROSEMIDE 40 MG TABLET PO SCH (08:10)
[2022-01-20] MEDS: PROPRANOLOL LA 60 MG CAP.SA.24H PO SCH (08:12)
[2022-01-20 12:00] VITALS: BP 92/52
--- NOTE | 2022-01-20 13:30 | NUR ---
RN NOTES PATIENT SEEN BY OT.
--- NOTE | 2022-01-20 13:35 | NUR ---
RN NOTES PATIENT IS TOLERATING ACTIVITIES IN BED. A/O X3.
[2022-01-20 16:12] VITALS: BP 116/70
--- NOTE | 2022-01-20 19:00 | NUR ---
RN NOTES AMMONIA LEVEL OF [address] ABEL
--- NOTE | 2022-01-20 19:27 | NUR ---
RN CLOSING NOTES PATIENT CURRENTLY IN BED WITH EYES CLOSED, RESPONDS TO VERBAL AND PHYSICAL STIMULI. APPEARS MORE LETHARGIC THAN THIS MORNING. REMAINS A/O X2-3 WITH SLOW SPEECH. NGT FEEDING RUNNING AT 30 ML/HR. NS RUNNING @ 50ML/HR. SAFETY MEASURES MAINTAINED. ENDORSED TO THE MANAGER ASSET NURSE FOR AMINATA
--- NOTE | 2022-01-20 19:30 | NUR ---
NEUROPATHOLOGIST OPENING NOTES RECEIVED PATIENT IN BED, EYES CLOSED, EASILY AROUSABLE. A/O X2-3 WITH SLOW SPEECH AND ABLE TO MAKE NEEDS KNOWN. PT STABLE ON ROOM AIR. NO SOB OR S/S OF RESPIRATORY DISTRESS. BREATHING EVEN AND UNLABORED. ON EXTERNAL DYE JIG OPERATOR READING SR @ 63 BPM. IV ACCESS LFA 18 GAUGE, INTACT AND PATENT, RUNNING NS @ 50 ML/HR. NGT FEEDING RUNNING AT 30 ML/HR. SAFETY PRECAUTIONS IN PLACE. BED IN LOWEST LOCKED POSITION, HOB ELEVATED, SIDE RAILS UP X3, AND CALL LIGHT AND TABLE WITHIN REACH. ALL NEEDS MET AT THIS TIME.
[2022-01-20 20:00] VITALS: BP 118/66
[2022-01-21] VITALS: BP 107/65
[2022-01-21 04:00] VITALS: BP 118/68
[2022-01-21] MEDS: IV NS 0.9% 1,000 ML IV PRN (04:38)
--- NOTE | 2022-01-21 06:48 | NUR ---
ALGORITHM DEVELOPER CLOSING NOTES PATIENT IN BED, EYES CLOSED, EASILY AROUSABLE. A/O X2-3 WITH SLOW SPEECH AND ABLE TO MAKE NEEDS KNOWN. PT STABLE ON ROOM AIR. NO SOB OR S/S OF RESPIRATORY DISTRESS. BREATHING EVEN AND UNLABORED. ON EXTERNAL ACCOUNT INFORMATION CLERK READING SB @ 58 BPM WITH BBB. IV ACCESS LFA 18 GAUGE, INTACT AND PATENT, RUNNING NS @ 50 ML/HR. NGT FEEDING RUNNING AT 30 ML/HR. ALL DUE MEDS GIVEN ORDERED. SAFETY PRECAUTIONS IN PLACE. BED IN LOWEST LOCKED POSITION, HOB ELEVATED, SIDE RAILS UP X3, AND CALL LIGHT AND TABLE WITHIN REACH. ALL NEEDS MET AT THIS TIME AND WILL ENDORSE TO ONCOMING NURSE FOR AMINATA.
[2022-01-21 07:07] LABS: BASOPHILS # (AUTO) 0.2 K/uL (0.0-0.2); EOSINOPHILS % (AUTO) 1.3 % (0.0-6.0); HEMATOCRIT 34 % (39-51); HEMOGLOBIN 11.6 g/dL (13.5-17.5); LYMPHOCYTES % (AUTO) 13.1 % (20.0-44.0); MEAN CORPUSCULAR HGB CONC 34 g/dl (31.0-36.0); MEAN CORPUSCULAR VOLUME 105 fL (80-96); MONOCYTES % (AUTO) 12.8 % (2.0-12.0); NEUTROPHILS # (AUTO) 5.3 K/uL (1.8-8.9); NEUTROPHILS % (AUTO) 69.8 % (43.0-81.0); PLATELET COUNT (AUTO) 118 K/uL (150-450); WHITE BLOOD COUNT (AUTO) 7.6 K/uL (4.3-11.0)
--- NOTE | 2022-01-21 07:18 | NUR ---
RN OPENING NOTES RECEIVED PATIENT IN BED, AWAKE, VERBALLY RESPONSIVE BUT SLOW. STABLE ON ROOM AIR. BREATHING EVEN AND UNLABORED, NO SOB NOTED. WITH IV ACCESS ON LEFT FOREARM, #18G, INTACT AND PATENT WITH NS @50ML/HR RUNNING. NOTED WITH NGT ON RIGHT NARE, PLACEMENT CHECKED, NO RESIDUAL NOTED, WITH FEEDING OF GLUCERNA 1.2 @50ML/HR RUNNING, TOLERATING WELL. ON TELE MONITOR CURRENT READING SHOWS SINUS MAREN, HR @ 57. ASPIRATIONS PRECAUTIONS OBSERVED, SAFETY MEASURE IN PLACE, HOB ELEVATED, BED IN LOWEST AND LOCKED POSITION, SIDE RAILS UP X2, CALL LIGHT PLACED WITHIN EASY REACH. WILL CONTINUE TO MONITOR PATIENT.
[2022-01-21] MEDS ORDERED: LACTULOSE 10 G/15 ML UDC (PYXIS) PO ONE (07:30)
[2022-01-21 07:32] LABS: CREATININE 0.8 mg/dL (0.6-1.3); PHOSPHORUS 3.9 mg/dL (2.5-4.9)
[2022-01-21 08:00] VITALS: BP 107/65
[2022-01-21] MEDS: DULOXETINE HCL 30 MG CAPSULE.DR PO SCH (08:08)
[2022-01-21] MEDS: PANTOPRAZOLE 40 MG TABLET.DR PO SCH (08:08)
[2022-01-21] MEDS: MIDODRINE HCL (5MG) 5 MG TABLET PO SCH ×3 (08:08→16:25)
[2022-01-21] MEDS: RIFAXIMIN 550 MG TABLET PO SCH ×2 (08:08→16:25)
[2022-01-21] MEDS: NICOTINE PATCH (21MG) 21 MG PATCH.TD24 TD SCH (08:09)
[2022-01-21] MEDS: THIAMINE HCL 100 MG TABLET PO SCH (08:09)
[2022-01-21] MEDS: FOLIC ACID 1 MG TABLET PO SCH (08:09)
[2022-01-21] MEDS: FUROSEMIDE 40 MG TABLET PO SCH (08:10)
[2022-01-21] MEDS: PROPRANOLOL LA 60 MG CAP.SA.24H PO SCH (08:10)
[2022-01-21] MEDS: SPIRONOLACTONE 25 MG TABLET PO SCH (08:10)
[2022-01-21 11:00] LABS: CALCIUM, SERUM 8.9 mg/dL (8.5-10.1)
[2022-01-21 11:02] LABS: MAGNESIUM 1.8 mg/dL (1.8-2.4)
[2022-01-21 12:00] VITALS: BP_SYST 126; BP_SYST 128; BP_DIAS 71; BP_DIAS 72
[2022-01-21 15:54] VITALS: BP 115/71
--- NOTE | 2022-01-21 18:42 | NUR ---
RN CLOSING NOTES PATIENT RESTING IN BED, EASILY AROUSED. NO SIGNS OF ACUTE DISTRESS NOTED. REMAINS STABLE ON ROOM AIR. BREATHING EVEN AND UNLABORED, NO SOB NOTED. IV ACCESS ON LEFT FOREARM, #18G, INTACT AND PATENT WITH NS @50ML/HR INFUSING WELL. NGT ON RIGHT NARE, INTACT, PLACEMENT CHECKED, NO RESIDUAL NOTED, CONTINUE WITH FEEDING OF GLUCERNA 1.2 @50ML/HR RUNNING, TOLERATED WELL. ON TELE MONITOR CURRENT READING SHOWS NORMAL SINUS RHYTHM, HR @ 62. ASPIRATIONS PRECAUTIONS OBSERVED, SAFETY MEASURE IN PLACE, HOB ELEVATED, BED IN LOWEST AND LOCKED POSITION, SIDE RAILS UP X2, CALL LIGHT PLACED WITHIN EASY REACH. WILL ENDORSE TO NEXT SHIFT FOR CONTINUITY OF CARE.
--- NOTE | 2022-01-21 19:45 | NUR ---
LOAN ADVISER OPENING NOTE PATIENT AWAKE IN BED, ALERT/ORIENTED X 2 WITH EPISODES OF CONFUSION. PT STABLE ON RA, NO S/S OF DISTRESS OR SOB NOTED, BREATHING EVEN AND UNLABORED. PT ON EXTERNAL EPIC PROFESSIONAL READING SINUS RHYTHM WITH BBB, HR: 72. RIGHT NARE NG TUBE IN PLACE AND INFUSING GLUCERNA 1.2 @ 30 ML/HR, NO RESIDUAL NOTED. IV ACCESS ON LEFT FOREARM #18G INTACT AND INFUSING NS @ 50 ML/HR. SAFETY MEASURES IN PLACE: CALL LIGHT WITHIN REACH, SIDE RAILS UP X 2, BED LOCKED IN LOWEST POSITION, BED ALARM ON. WILL CONTINUE TO MONITOR PATIENT
[2022-01-21 20:00] VITALS: BP 103/60
[2022-01-21] MEDS: ACETAMINOPHEN 325 MG TABLET PO PRN (20:44)
[2022-01-22] VITALS: BP 102/57
[2022-01-22] MEDS: GLUCERNA 1.2 1,000 ML BOTTLE NG PRN (01:09)
[2022-01-22] MEDS: IV NS 0.9% 1,000 ML IV PRN ×2 (01:09→17:26)
[2022-01-22 04:00] VITALS: BP 109/62
[2022-01-22 07:21] LABS: BASOPHILS # (AUTO) 0.1 K/uL (0.0-0.2); BASOPHILS % (AUTO) 1.3 % (0.0-2.0); EOSINOPHILS % (AUTO) 1.1 % (0.0-6.0); HEMATOCRIT 34 % (39-51); HEMOGLOBIN 11.9 g/dL (13.5-17.5); LYMPHOCYTES # (AUTO) 0.9 K/uL (0.8-4.8); LYMPHOCYTES % (AUTO) 10.3 % (20.0-44.0); MEAN CORPUSCULAR HGB CONC 35 g/dl (31.0-36.0); MEAN CORPUSCULAR VOLUME 104 fL (80-96); MONOCYTES # (AUTO) 0.9 K/uL (0.1-1.30); MONOCYTES % (AUTO) 10.2 % (2.0-12.0); NEUTROPHILS # (AUTO) 7.1 K/uL (1.8-8.9); NEUTROPHILS % (AUTO) 77.1 % (43.0-81.0); PLATELET COUNT (AUTO) 132 K/uL (150-450); WHITE BLOOD COUNT (AUTO) 9.2 K/uL (4.3-11.0)
--- NOTE | 2022-01-22 07:42 | NUR ---
RENAL DIETITIAN CLOSING NOTE PATIENT AWAKE IN BED, ALERT/ORIENTED X 2, WITH PERIODS OF CONFUSION. PT STABLE ON RA, NO S/S OF DISTRESS OR SOB NOTED, BREATHING EVEN AND UNLABORED. PT ON EXTERNAL PUBLIC AFFAIRS MANAGER READING SINUS RHYTHM WITH BBB, HR: 64. RIGHT NARE NG TUBE IN PLACE AND INFUSING GLUCERNA 1.2 @ 30 ML/HR. IV ACCESS ON LEFT FOREARM #18G INTACT AND INFUSING NS @ 50 ML/HR. MEDICATIONS GIVEN ORDERED, PT NEEDS MET THROUGHOUT SHIFT. SAFETY MEASURES IN PLACE: CALL LIGHT WITHIN REACH, SIDE RAILS UP X 2, BED LOCKED IN LOWEST POSITION, BED ALARM ON. ENDORSED TO DAY SHIFT NURSE FOR CONTINUITY OF CARE
[2022-01-22 07:56] LABS: CALCIUM, SERUM 9.1 mg/dL (8.5-10.1); CREATININE 0.8 mg/dL (0.6-1.3); POTASSIUM 3.8 mmol/L (3.5-5.1)
--- NOTE | 2022-01-22 08:16 | NUR ---
RN NOTES DR. ABEL AT BEDSIDE TO SEE THE PATIENT. VERBALLY RESPONSIVE BUT UNABLE TO COMPREHEND; SOME CONFUSION NOTED. NGT IN PLACE, FEEDING TOLERATED. IVF CONTINUOUS. SAFETY MEASURES IN PLACE.
[2022-01-22] MEDS: NICOTINE PATCH (21MG) 21 MG PATCH.TD24 TD SCH (08:59)
[2022-01-22] MEDS: PANTOPRAZOLE 40 MG TABLET.DR PO SCH (08:59)
[2022-01-22] MEDS: RIFAXIMIN 550 MG TABLET PO SCH ×2 (08:59→16:15)
[2022-01-22] MEDS: THIAMINE HCL 100 MG TABLET PO SCH (08:59)
[2022-01-22] MEDS: FOLIC ACID 1 MG TABLET PO SCH (08:59)
[2022-01-22] MEDS: DULOXETINE HCL 30 MG CAPSULE.DR PO SCH (08:59)
[2022-01-22] MEDS: FUROSEMIDE 40 MG TABLET PO SCH (08:59)
[2022-01-22] MEDS: SPIRONOLACTONE 25 MG TABLET PO SCH (08:59)
[2022-01-22] MEDS: MIDODRINE HCL (5MG) 5 MG TABLET PO SCH ×3 (09:00→16:15)
[2022-01-22] MEDS: PROPRANOLOL LA 60 MG CAP.SA.24H PO SCH (09:02)
--- NOTE | 2022-01-22 09:20 | NUR ---
RN NOTES OT AT BEDSIDE FOR THERA EXERCISES.
--- NOTE | 2022-01-22 17:08 | NUR ---
RN NOTES GTF CONTINUOUS; KEPT HOB ELEVATED IN BED. ABLE TO USE THE URINAL AT BEDSIDE W/ ASSISTANCE.
--- NOTE | 2022-01-22 18:45 | NUR ---
RN NOTES ORDER FOR B/L SOFTWRIST RESTRAINED OBTAINED PATIENT WAS TRYING TO GET OUT OF BED AND TRYING TO REMOVE NGT. ATTEMPTED LEAST RESTRICTIVE MEASURE BUT PATIENT UNABLE TO BE REORIENTED.
--- NOTE | 2022-01-22 19:35 | NUR ---
WHEEL ROLLER OPENING NOTE PATIENT SLEEPING IN BED WITH PARTNER AT BEDSIDE, ALERT/ORIENTED X 2 WITH EPISODES OF CONFUSION. PT STABLE ON RA, NO S/S OF DISTRESS OR SOB NOTED, BREATHING EVEN AND UNLABORED. RIGHT NARE NG TUBE IN PLACE AND INFUSING GLUCERNA 1.2 @ 30 ML/HR, NO RESIDUAL NOTED. IV ACCESS ON LEFT FOREARM #18G INTACT AND INFUSING NS @ 50 ML/HR. BILATERAL SOFT WRIST RESTRAINTS IN PLACE D/T PATIENT ATTEMPTING TO GET OUT OF BED AND ALSO REMOVE NGT DURING DAY SHIFT. SAFETY MEASURES IN PLACE: CALL LIGHT WITHIN REACH, SIDE RAILS UP X 2, BED LOCKED IN LOWEST POSITION, BED ALARM ON. WILL CONTINUE TO MONITOR PATIENT
[2022-01-22 20:00] VITALS: BP 115/70
[2022-01-23 06:40] LABS: BASOPHILS # (AUTO) 0.1 K/uL (0.0-0.2); BASOPHILS % (AUTO) 1.2 % (0.0-2.0); EOSINOPHILS % (AUTO) 1.2 % (0.0-6.0); HEMATOCRIT 32 % (39-51); HEMOGLOBIN 11.1 g/dL (13.5-17.5); LYMPHOCYTES # (AUTO) 0.9 K/uL (0.8-4.8); LYMPHOCYTES % (AUTO) 10.3 % (20.0-44.0); MEAN CORPUSCULAR HGB CONC 35 g/dl (31.0-36.0); MEAN CORPUSCULAR VOLUME 103 fL (80-96); MONOCYTES # (AUTO) 0.9 K/uL (0.1-1.30); MONOCYTES % (AUTO) 10.5 % (2.0-12.0); NEUTROPHILS # (AUTO) 6.9 K/uL (1.8-8.9); NEUTROPHILS % (AUTO) 76.8 % (43.0-81.0); PLATELET COUNT (AUTO) 147 K/uL (150-450); RED BLOOD CELL COUNT(AUTO) 3.11 MIL/uL (4.5-6.0)
--- NOTE | 2022-01-23 06:47 | NUR ---
MS RN CLOSING NOTES PATIENT SLEEPING IN BED, ALERT/ORIENTED X 1-2 WITH EPISODES OF CONFUSION. PATIENT HAS SLOW SPEECH AND NOT VERY INTERACTIVE. PT STABLE ON RA, NO S/S OF DISTRESS OR SOB NOTED, BREATHING EVEN AND UNLABORED. RIGHT NARE NG TUBE IN PLACE AND INFUSING GLUCERNA 1.2 @ 30 ML/HR. IV ACCESS ON LEFT FOREARM #18G INTACT AND INFUSING NS @ 50 ML/HR. BILATERAL SOFT WRIST RESTRAINTS REMOVED AT THIS TIME, PATIENT HAS NOT ATTEMPTED TO GET OUT OF BED OR REMOVE NGT. SAFETY MEASURES IN PLACE: CALL LIGHT WITHIN REACH, SIDE RAILS UP X 2, BED LOCKED IN LOWEST POSITION, BED ALARM ON. WILL ENDORSE TO DAY SHIFT NURSE FOR CONTINUITY OF CARE
--- NOTE | 2022-01-23 07:16 | NUR ---
PACKING LINE WORKER OPENING NOTE RECEIVED PATIENT SLEEPING IN BED ALERT/ORIENTED X 3, OBEYS COMMANDS. ON RA, NO S/S OF DISTRESS OR SOB NOTED, BREATHING EVEN AND UNLABORED. WITH NG TUBE IN PLACE AND INFUSING GLUCERNA 1.2 @ 50 ML/HR, NO RESIDUAL NOTED. IV ACCESS ON LEFT FOREARM #18G AND INFUSING NS @ 50 ML/HR. SAFETY MEASURES IN PLACE: CALL LIGHT WITHIN REACH, SIDE RAILS UP X 2, BED LOCKED IN LOWEST POSITION, BED ALARM ON. WILL CONTINUE TO MONITOR PATIENT
--- NOTE | 2022-01-23 08:10 | NUR ---
MS RN NOTE SEEN BY DR. ABEL
[2022-01-23] MEDS: MIDODRINE HCL (5MG) 5 MG TABLET PO SCH ×3 (09:55→17:51)
[2022-01-23] MEDS: DULOXETINE HCL 30 MG CAPSULE.DR PO SCH (09:55)
[2022-01-23] MEDS: FUROSEMIDE 40 MG TABLET PO SCH (09:55)
[2022-01-23] MEDS: RIFAXIMIN 550 MG TABLET PO SCH ×2 (09:55→17:51)
[2022-01-23] MEDS: FOLIC ACID 1 MG TABLET PO SCH (09:55)
[2022-01-23] MEDS: THIAMINE HCL 100 MG TABLET PO SCH (09:55)
[2022-01-23] MEDS: SPIRONOLACTONE 25 MG TABLET PO SCH (09:56)
[2022-01-23] MEDS: NICOTINE PATCH (21MG) 21 MG PATCH.TD24 TD SCH (10:02)
[2022-01-23] MEDS: PANTOPRAZOLE 40 MG TABLET.DR PO SCH (10:02)
[2022-01-23] MEDS: PROPRANOLOL LA 60 MG CAP.SA.24H PO SCH (10:03)
--- NOTE | 2022-01-23 11:15 | NUR ---
MS RN NOTE PATIENT REMOVED NGT. TRIED THIN LIQUIDS, TOLERATED WELL. DR. ABEL NOTIFIED WITH ORDER TO START ON CLEAR LIQUIDS. MAINTAINED ON MODERATE TO HIGH BACK REST. COMFORT MEASURES PROVIDED. IN STABLE CONDITION.
[2022-01-23 12:18] LABS: CALCIUM, SERUM 8.7 mg/dL (8.5-10.1); CREATININE 0.8 mg/dL (0.6-1.3); POTASSIUM 4.1 mmol/L (3.5-5.1)
[2022-01-23] MEDS: IV NS 0.9% 1,000 ML IV PRN (18:18)
--- NOTE | 2022-01-23 19:00 | NUR ---
FULLER BRUSH WORKER CLOSING NOTE PATIENT SLEEPING IN BED ALERT/ORIENTED X 4, OBEYS COMMANDS. ON RA, NO S/S OF DISTRESS OR SOB NOTED, BREATHING EVEN AND UNLABORED. PATIENT STARTED ON CLEAR LIQUIDS, TOLERATED WELL. SAFETY MEASURES IN PLACE: CALL LIGHT WITHIN REACH, SIDE RAILS UP X 2, BED LOCKED IN LOWEST POSITION, BED ALARM ON. WILL ENDORSE PATIENT FOR CONTINUITY OF CARE.
--- NOTE | 2022-01-23 19:47 | NUR ---
RN OPENING NOTE PATIENT AWAKE IN BED. A/OX4. NO S/S OF DISTRESS, BREATHING W/O DIFFICULTY ON RM AIR. LFA #18 INTACT AND PATENT W/ NS 50ML/HR. SAFETY MEASURES IN PLACE: BED LOCKED, AT LOWEST LEVEL, RAILS UP X2, CALL AZEVEDO WITHIN REACH. WILL CONTINUE TO MONITOR PATIENT.
[2022-01-24 06:34] LABS: BASOPHILS # (AUTO) 0.1 K/uL (0.0-0.2); BASOPHILS % (AUTO) 1.2 % (0.0-2.0); EOSINOPHILS % (AUTO) 2.4 % (0.0-6.0); HEMATOCRIT 32 % (39-51); HEMOGLOBIN 11.2 g/dL (13.5-17.5); LYMPHOCYTES # (AUTO) 0.9 K/uL (0.8-4.8); LYMPHOCYTES % (AUTO) 13.7 % (20.0-44.0); MEAN CORPUSCULAR HGB CONC 35 g/dl (31.0-36.0); MEAN CORPUSCULAR VOLUME 104 fL (80-96); MONOCYTES # (AUTO) 0.9 K/uL (0.1-1.30); MONOCYTES % (AUTO) 12.8 % (2.0-12.0); NEUTROPHILS # (AUTO) 4.8 K/uL (1.8-8.9); NEUTROPHILS % (AUTO) 69.9 % (43.0-81.0); PLATELET COUNT (AUTO) 132 K/uL (150-450); RED BLOOD CELL COUNT(AUTO) 3.09 MIL/uL (4.5-6.0); WHITE BLOOD COUNT (AUTO) 6.9 K/uL (4.3-11.0)
[2022-01-24 07:06] LABS: ALBUMIN 2.7 g/dL (3.4-5.0); CALCIUM, SERUM 8.6 mg/dL (8.5-10.1); CREATININE 0.8 mg/dL (0.6-1.3); POTASSIUM 3.6 mmol/L (3.5-5.1); TOTAL PROTEIN, SERUM 5.7 g/dL (6.4-8.2)
--- NOTE | 2022-01-24 07:43 | NUR ---
RN CLOSING NOTE PATIENT ASLEEP IN HIS BED. A/OX4. NO S/S OF DISTRESS; BREATHING WELL ON ROOM AIR. LFA #18 INTACT AND PATENT W/ NS 50ML/HR. SAFETY MEASURES IN PLACE: BED LOCKED, AT LOWEST POSITION, RAILS UP X3, CALL AZEVEDO WITHIN REACH. REPORT WAS ENDORSED TO AND ACKNOWLEDGED BY RN, RANDY, FOR AMINATA.
[2022-01-24 08:00] VITALS: BP 106/66
[2022-01-24] MEDS: PROPRANOLOL LA 60 MG CAP.SA.24H PO SCH (09:00)
[2022-01-24] MEDS: SPIRONOLACTONE 25 MG TABLET PO SCH (09:00)
[2022-01-24] MEDS: RIFAXIMIN 550 MG TABLET PO SCH ×2 (10:01→17:54)
[2022-01-24] MEDS: NICOTINE PATCH (21MG) 21 MG PATCH.TD24 TD SCH (10:01)
[2022-01-24] MEDS: PANTOPRAZOLE 40 MG TABLET.DR PO SCH (10:02)
[2022-01-24] MEDS: FOLIC ACID 1 MG TABLET PO SCH (10:02)
[2022-01-24] MEDS: MIDODRINE HCL (5MG) 5 MG TABLET PO SCH ×3 (10:02→17:54)
[2022-01-24] MEDS: FUROSEMIDE 40 MG TABLET PO SCH (10:02)
[2022-01-24] MEDS: THIAMINE HCL 100 MG TABLET PO SCH (10:02)
[2022-01-24] MEDS: DULOXETINE HCL 30 MG CAPSULE.DR PO SCH (10:02)
[2022-01-24] MEDS: IV NS 0.9% 1,000 ML IV PRN (15:10)
[2022-01-24 16:00] VITALS: BP 102/72
--- NOTE | 2022-01-24 18:28 | NUR ---
pt. remains weak and frail,partner here with anais getting pt. to sign paperwork.
[2022-01-24 20:00] VITALS: BP 128/72
--- NOTE | 2022-01-25 06:27 | NUR ---
END OF SHIFT REPORT Patient is Alert Oriented x3. Oxygen sat 96% on RA, denies SOB, no c/o chest pain. IV fluids infusing, on Clear liquids diet. Abdomen rounded, firm, distended. No N/V. Afebrile. Turned and repositioned, patient incontinent with bladder function, coccyx, gluteal, scrotal redness, skin photos placed in the chart. Wound consult. Pending placement. Will endorse to oncoming RN.
--- NOTE | 2022-01-25 08:05 | NUR ---
RN OPENING NOTE PATIENT RECEIVED IN BED, AO X 3. ABLE TO RESPONDS ALL STIMULI. IN NO ACUTE DISTRESS NOTED. RESPIRATORY EVEN AND UNLABORED ON ROOM AIR. SKIN IS WARM TO TOUCH, KEEP CLEAN/DRY. KEPT ELEVATED HOB FOR ENSURE AIRWAY AND ASPIRATION PRECAUTION, ALSO LOWEST POSITION OF THE BED, S/R UP X 3, BED ALARM IS ON AT ALL THE TIMES. ALL SAFETY PRECAUTION APPLIED. CALL LIGHT WITHIN REACH, WILL CONTINUE TO MONITOR.
[2022-01-25] MEDS: MIDODRINE HCL (5MG) 5 MG TABLET PO SCH ×3 (08:58→17:26)
[2022-01-25] MEDS: THIAMINE HCL 100 MG TABLET PO SCH (08:58)
[2022-01-25] MEDS: RIFAXIMIN 550 MG TABLET PO SCH ×2 (08:58→17:26)
[2022-01-25] MEDS: NICOTINE PATCH (21MG) 21 MG PATCH.TD24 TD SCH (08:59)
[2022-01-25] MEDS: SPIRONOLACTONE 25 MG TABLET PO SCH (08:59)
[2022-01-25] MEDS: FOLIC ACID 1 MG TABLET PO SCH (08:59)
[2022-01-25] MEDS: DULOXETINE HCL 30 MG CAPSULE.DR PO SCH (08:59)
[2022-01-25] MEDS: FUROSEMIDE 40 MG TABLET PO SCH (08:59)
[2022-01-25] MEDS: PANTOPRAZOLE 40 MG TABLET.DR PO SCH (09:04)
[2022-01-25] MEDS: PROPRANOLOL LA 60 MG CAP.SA.24H PO SCH (09:05)
[2022-01-25] MEDS: IV NS 0.9% 1,000 ML IV PRN (09:48)
--- NOTE | 2022-01-25 12:48 | NUR ---
PATIENT'S PARENTS AT BED SIDE REQUESTING THE ENSURE (VANILLA FLAVOR) FOR PATIENT'S MAINTAIN NUTRITION.
[2022-01-25] MEDS: ENSURE ENLIVE 237 ML LIQUID (VANILLA) PO SCH ×2 (13:33→17:25)
--- NOTE | 2022-01-25 18:37 | NUR ---
RN CLOSE NOTE PATIENT IN BED, IN NO ACUTE DISTRESS OBSERVED. PATIENT'S SISTER AT BED SIDE. RESPIRATION EVEN AND UNLABORED ON ROOM AIR O2SAT 98%. SKIN IS WARM TO TOUCH KEEP CLEAN/DRY. PATIENT C/O FEELS URGENT URINATE AND ABD DISCOMFORT WHEN URINATING. SO COLLECTED URINE SAMPLE FOR UA/C&S. KEPT ELEVATED HOB FOR ENSURE AIRWAY AND ASPIRATION PRECAUTION. ALSO LOWEST POSITION OF THE BED FOR SAFETY. CALL LIGHT WITHIN REACH, WILL ENDORSE TO TRAINING AND DEVELOPMENT COORDINATOR.
--- NOTE | 2022-01-25 19:25 | NUR ---
MS RN OPENING NOTES RECEIVED PATIENT IN BED; AWAKE, ALERT AND ORIENTED X3. BREATHING IS EVEN AND NONLABORED. ON ROOM AIR, WELL TOLERATED. NOT IN ANY FORM OF RESPIRATORY DISTRESS. DENIES ANY PAIN OR DISCOMFORT OF THIS TIME. WITH IV ACCESS ON LEFT FOREARM ; PATENT, INTACT AND FLUSHES WELL, INFUSING WITH NS REGULATED @ 50ML/HR. ABLE TO MAKE NEEDS KNOWN. SAFETY MEASURES IMPLEMENTED: CALL LIGHT AND TABLE WITHIN EASY REACH, SIDE RAILS UP X2, BED IN LOWEST LOCKED POSITION. WILL CONTINUE TO MONITOR
[2022-01-25 19:28] LABS: BILIRUBIN,URINE NEGATIVE (NEGATIVE); COLOR,URINE YELLOW (YELLOW); LEUKOCYTE ESTERASE ,URINE NEGATIVE (NEGATIVE); NITRITE, URINE NEGATIVE (NEGATIVE); PROTEIN,URINE NEGATIVE (NEGATIVE); UGLUCOSE NEGATIVE (NEGATIVE); UROBILINOGEN,URINE 0.2 EU/dL (0.2)
[2022-01-25 20:00] VITALS: BP 102/69
[2022-01-25 20:15] VITALS: BP 102/69
[2022-01-25 20:17] LABS: BACTERIA,URINE None seen /HPF (None Seen); CALCIUM OXALATE CRYSTALS,UR Many /HPF (None Seen); MUCUS,URINE Few /LPF (None Seen); RBC,URINE 0-2 /HPF (0-2); SQUAMOUS EPITHELIAL CELL,UR 0-2 /HPF (None Seen); WBC,URINE 0-2 /HPF (0-3)
[2022-01-26] MEDS: IV NS 0.9% 1,000 ML IV PRN (06:12)
[2022-01-26 07:06] LABS: BASOPHILS # (AUTO) 0.2 K/uL (0.0-0.2); BASOPHILS % (AUTO) 2.4 % (0.0-2.0); EOSINOPHILS % (AUTO) 3.1 % (0.0-6.0); HEMATOCRIT 32 % (39-51); LYMPHOCYTES # (AUTO) 1.1 K/uL (0.8-4.8); LYMPHOCYTES % (AUTO) 16.6 % (20.0-44.0); MEAN CORPUSCULAR HGB CONC 35 g/dl (31.0-36.0); MEAN CORPUSCULAR VOLUME 102 fL (80-96); MONOCYTES # (AUTO) 0.8 K/uL (0.1-1.30); MONOCYTES % (AUTO) 12.8 % (2.0-12.0); NEUTROPHILS # (AUTO) 4.2 K/uL (1.8-8.9); NEUTROPHILS % (AUTO) 65.1 % (43.0-81.0); PLATELET COUNT (AUTO) 136 K/uL (150-450); RED BLOOD CELL COUNT(AUTO) 3.11 MIL/uL (4.5-6.0); WHITE BLOOD COUNT (AUTO) 6.4 K/uL (4.3-11.0)
--- NOTE | 2022-01-26 07:21 | NUR ---
MS RN CLOSING NOTES PATIENT IS IN BED; AWAKE, ALERT AND ORIENTED X3. BREATHING IS EVEN AND NONLABORED. ON ROOM AIR, WELL TOLERATED. NOT IN ANY FORM OF RESPIRATORY DISTRESS. DENIES ANY PAIN OR DISCOMFORT OF THIS TIME. NEEDS ATTENDED. SAFETY MEASURES IN PLACE. ENDORSED TO NURSE GONZALEZ FOR AMINATA.
--- NOTE | 2022-01-26 07:38 | NUR ---
RN OPENING NOTE- RECEIVED PATIENT IN BED; AWAKE, ALERT AND ORIENTED X3. BREATHING IS EVEN AND NONLABORED. ON ROOM AIR, WELL TOLERATED. DENIES ANY PAIN OR DISCOMFORT OF THIS TIME. WITH IV ACCESS ON LEFT FOREARM ; PATENT, INTACT AND FLUSHES WELL, INFUSING WITH NS REGULATED @ 50ML/HR. ABLE TO MAKE NEEDS KNOWN. SAFETY MEASURES IMPLEMENTED: CALL LIGHT AND TABLE WITHIN EASY REACH, SIDE RAILS UP X2, BED IN LOWEST LOCKED POSITION. WILL CONTINUE TO MONITOR / ASSIST
[2022-01-26 07:48] LABS: CALCIUM, SERUM 8.7 mg/dL (8.5-10.1); CREATININE 0.7 mg/dL (0.6-1.3); POTASSIUM 3.5 mmol/L (3.5-5.1)
[2022-01-26 08:00] VITALS: BP 103/67
[2022-01-26] MEDS: PANTOPRAZOLE 40 MG TABLET.DR PO SCH (08:27)
[2022-01-26] MEDS: NICOTINE PATCH (21MG) 21 MG PATCH.TD24 TD SCH (08:33)
[2022-01-26] MEDS: SPIRONOLACTONE 25 MG TABLET PO SCH (08:34)
[2022-01-26] MEDS: DULOXETINE HCL 30 MG CAPSULE.DR PO SCH (08:34)
[2022-01-26] MEDS: THIAMINE HCL 100 MG TABLET PO SCH (08:34)
[2022-01-26] MEDS: RIFAXIMIN 550 MG TABLET PO SCH ×2 (08:34→16:42)
[2022-01-26] MEDS: FUROSEMIDE 40 MG TABLET PO SCH (08:34)
[2022-01-26] MEDS: FOLIC ACID 1 MG TABLET PO SCH (08:34)
[2022-01-26] MEDS: MIDODRINE HCL (5MG) 5 MG TABLET PO SCH ×3 (08:34→16:42)
[2022-01-26] MEDS: PROPRANOLOL LA 60 MG CAP.SA.24H PO SCH (08:35)
[2022-01-26] MEDS: ENSURE ENLIVE 237 ML LIQUID (VANILLA) PO SCH ×2 (08:35→16:43)
[2022-01-26 16:00] VITALS: BP 97/66
--- NOTE | 2022-01-26 18:44 | NUR ---
RN CLOSING NOTE- RECEIVED PATIENT IN BED; AWAKE, ALERT AND ORIENTED X3. BREATHING IS EVEN AND NONLABORED. ON ROOM AIR, WELL TOLERATED. DENIES ANY PAIN OR DISCOMFORT OF THIS TIME. WITH IV ACCESS ON LEFT FOREARM ; PATENT, INTACT AND FLUSHES WELL, INFUSING WITH NS REGULATED @ 50ML/HR. PHYSICAL THERAPIST REPORTS PT STOOD AMBULATED AND DID WELL W PT. PATIENT HAD LARGE BM TODAY. ASKING ABOUT PARACENTESIS. WANTS TO EAT MORE BUT CANNOT DUE TO ASCITES, ABLE TO MAKE NEEDS KNOWN. SAFETY MEASURES IMPLEMENTED: CALL LIGHT AND TABLE WITHIN EASY REACH, SIDE RAILS UP X2, BED IN LOWEST LOCKED POSITION. WILL CONTINUE TO MONITOR / ASSIST
--- NOTE | 2022-01-26 19:30 | NUR ---
RN OPENING NOTE PATIENT IN BED, AWAKE. PATIENT'S FAMILY AND FRIEND AT BEDSIDE. PATIENT IS A/O X 3 AT THIS TIME, ABLE TO MAKE NEEDS KNOWN. PATIENT IS ON RA, TOLERATING WELL. PATIENT'S ABDOMEN DISTENDED D/T ASCITES. PATIENT HAS A LFA IV ACCESS WITH NS AT 50 ML/HR. NO COMPLAINTS OF PAIN AT THIS TIMES. SAFETY MEASURES IN PLACE: BED LOCKED AND IN LOWEST POSITION, CALL LIGHT WITHIN REACH, SIDE RAILS UP. WILL MONITOR PATIENT CLOSELY
[2022-01-26 20:00] VITALS: BP 108/63
[2022-01-27] MEDS: IV NS 0.9% 1,000 ML IV PRN (05:28)
[2022-01-27 06:35] LABS: BASOPHILS # (AUTO) 0.1 K/uL (0.0-0.2); BASOPHILS % (AUTO) 1.6 % (0.0-2.0); EOSINOPHILS % (AUTO) 3.4 % (0.0-6.0); HEMATOCRIT 32 % (39-51); HEMOGLOBIN 11.3 g/dL (13.5-17.5); LYMPHOCYTES % (AUTO) 15.9 % (20.0-44.0); MEAN CORPUSCULAR HGB CONC 35 g/dl (31.0-36.0); MEAN CORPUSCULAR VOLUME 102 fL (80-96); MONOCYTES # (AUTO) 0.9 K/uL (0.1-1.30); MONOCYTES % (AUTO) 14.7 % (2.0-12.0); NEUTROPHILS % (AUTO) 64.4 % (43.0-81.0); PLATELET COUNT (AUTO) 126 K/uL (150-450); RED BLOOD CELL COUNT(AUTO) 3.12 MIL/uL (4.5-6.0); WHITE BLOOD COUNT (AUTO) 6.3 K/uL (4.3-11.0)
[2022-01-27 06:56] LABS: CALCIUM, SERUM 8.6 mg/dL (8.5-10.1); CREATININE 0.7 mg/dL (0.6-1.3); POTASSIUM 3.9 mmol/L (3.5-5.1)
--- NOTE | 2022-01-27 07:20 | NUR ---
RN OPENING NOTES RECEIVED PATIENT IN BED WITH EYES CLOSED, ABLE TO BE WAKEN. A/O X3. PATIENT IS ON RA, TOLERATING WELL, NO SOB NOTED. PATIENT'S ABDOMEN FIRM AND DISTENDED D/T ASCITES. DENIES PAIN AT THIS TIME. LFA IV ACCESS WITH NS AT 50 ML/HR. SAFETY MEASURES IN PLACE: BED LOCKED AND IN LOWEST POSITION, CALL LIGHT WITHIN REACH, SIDE RAILS UP. WILL CONTINUE TO MONITOR
--- NOTE | 2022-01-27 07:23 | NUR ---
RN CLOSING NOTE PATIENT IN BED, EYES CLOSED, EASILY AROUSED. PATIENT IS A/O X 3 AT THIS TIME, ABLE TO MAKE NEEDS KNOWN. PATIENT IS ON RA, TOLERATING WELL. PATIENT'S ABDOMEN DISTENDED D/T ASCITES. PATIENT HAS A LFA IV ACCESS WITH NS AT 50 ML/HR. NO COMPLAINTS OF PAIN AT DURING THE SHIFT. SAFETY MEASURES IN PLACE: BED LOCKED AND IN LOWEST POSITION, CALL LIGHT WITHIN REACH, SIDE RAILS UP. ALL NEEDS MET AND ATTENDED. ALL ORDERS CARRIED OUT. WILL ENDORSE TO DAY SHIFT NURSE FOR AMINATA.
[2022-01-27 08:00] VITALS: BP 118/73
[2022-01-27] MEDS: MIDODRINE HCL (5MG) 5 MG TABLET PO SCH ×3 (08:40→17:57)
[2022-01-27] MEDS: RIFAXIMIN 550 MG TABLET PO SCH ×2 (08:40→17:56)
[2022-01-27] MEDS: FUROSEMIDE 40 MG TABLET PO SCH (08:40)
[2022-01-27] MEDS: NICOTINE PATCH (21MG) 21 MG PATCH.TD24 TD SCH (08:40)
[2022-01-27] MEDS: FOLIC ACID 1 MG TABLET PO SCH (08:41)
[2022-01-27] MEDS: SPIRONOLACTONE 25 MG TABLET PO SCH (08:41)
[2022-01-27] MEDS: DULOXETINE HCL 30 MG CAPSULE.DR PO SCH (08:41)
[2022-01-27] MEDS: PANTOPRAZOLE 40 MG TABLET.DR PO SCH (08:41)
[2022-01-27] MEDS: THIAMINE HCL 100 MG TABLET PO SCH (08:41)
[2022-01-27] MEDS: ENSURE ENLIVE 237 ML LIQUID (VANILLA) PO SCH ×2 (08:42→17:57)
[2022-01-27] MEDS: PROPRANOLOL LA 60 MG CAP.SA.24H PO SCH (08:45)
--- NOTE | 2022-01-27 09:27 | NUR ---
WOUND CARE CONSULT: PT PRESENTS WITH RASH TO GROIN FOLDS, PERINEUM AND GLUTEAL CREASE WITH SOME MOISTURE ASSOCIATED OPEN SKIN TO GLUTEAL CREASE. RECOMMENDATIONS MADE FOR SKIN PROTECTION AND SKIN CARE. DISCUSSED WITH NURSING STAFF. MD IN AGREEMENT WITH PLAN OF CARE. PT TO BE PLACED ON THERON ISOFLEX LOW AIRLOSS BED.
[2022-01-27] MEDS ORDERED: Z GUARD REMEDY 4 OZ OINT TP PRN (09:30)
[2022-01-27] MEDS: CLOTRIMAZOLE 1% 15 GM TUBE TP SCH ×2 (10:23→17:57)
[2022-01-27] MEDS: Z GUARD REMEDY 4 OZ OINT TP SCH (10:24)
[2022-01-27 16:00] VITALS: BP 99/51
--- NOTE | 2022-01-27 16:00 | NUR ---
RN NOTES ULTRASOUND GUIDED PARACENTESIS DONE. 6L OUTPUT. PATIENT TOLERATED WELL
--- NOTE | 2022-01-27 16:46 | NUR ---
SS note: SW met with pt.'s sister, Tamar Leach [phone] and her who stated they are in town from [place] where they reside. SW provided education about Durable power of flasher adjuster for healthcare and provided document as well as mobile Shortlist number and they accepted it. Family notified ASAD that they are unsure as to if the pt. actually wanted to relinquish the ability to make medical decisions effective immediately to his roommate, Thad Butler and to sister, Tamar. This was stated on a typed up document stamped by [employer]. The pt. was not awake at the moment and has a procedure done so pt. was tired. ASAD will consult with SS director regarding validity of document. ASAD will meet with pt. tomorrow to interview him about document and his wishes. ASAD will provide ombudsman telephone number to family and make appropriate report if needed. SW will remain available as needed.
--- NOTE | 2022-01-27 19:00 | NUR ---
RN NOTES PATIENT IN BED WITH FAMILY AT BEDSIDE. ABDOMEN SOFT AND LESS DISTENDED. NO COMPLAINTS AT THIS TIME. SAFETY MEASURES IN PLACE. WILL ENDORSE TO THE COMPUGRAPH OPERATOR NURSE FOR AMINATA
--- NOTE | 2022-01-27 19:30 | NUR ---
RN OPENING NOTE PATIENT IN BED, AWAKE. PATIENT'S SISTER AND BROTHER AT BEDSIDE. PATIENT IS A/O X 3 AT THIS TIME, ABLE TO MAKE NEEDS KNOWN. PATIENT IS ON RA, TOLERATING WELL. PATIENT S/P PARACENTESIS 6L OUT. PATIENT HAS A LFA IV ACCESS WITH NS AT 50 ML/HR. NO COMPLAINTS OF PAIN AT THIS TIMES. SAFETY MEASURES IN PLACE: BED LOCKED AND IN LOWEST POSITION, CALL LIGHT WITHIN REACH, SIDE RAILS UP. WILL MONITOR PATIENT CLOSELY
[2022-01-27 20:00] VITALS: BP 98/62
[2022-01-28] MEDS: IV NS 0.9% 1,000 ML IV PRN (02:21)
--- NOTE | 2022-01-28 07:00 | NUR ---
RN CLOSING NOTE PATIENT IN BED, EYES CLOSED, EASILY AROUSED BY VERBAL AND TOUCH STIMULI. PATIENT IS A/O X 3 AT THIS TIME, ABLE TO MAKE NEEDS KNOWN. PATIENT IS ON RA, TOLERATING WELL. PATIENT'S ABDOMEN DISTENDED D/T ASCITES. PATIENT HAS A LFA IV ACCESS WITH NS AT 50 ML/HR. NO COMPLAINTS OF PAIN AT DURING THE SHIFT. SAFETY MEASURES IN PLACE: BED LOCKED AND IN LOWEST POSITION, CALL LIGHT WITHIN REACH, SIDE RAILS UP. ALL NEEDS MET AND ATTENDED. ALL ORDERS CARRIED OUT. WILL ENDORSE TO DAY SHIFT NURSE FOR AMINATA.
--- NOTE | 2022-01-28 07:25 | NUR ---
MS RN OPENING NOTE RECEIVED PT IN BED AWAKE. A/O X4, ABLE TO MAKE NEEDS KNOWN. ON RA, TOLERATING WELL. BREATHING EVEN AND UNLABORED. NOT IN ANY SIGN OF DISTRESS. IV ACCESS IN LFA G #18, INTACT AND PATENT WITH NS INFUSING AT 50ML/HR. SAFETY MEASURES IN PLACE: BED IN LOWEST AND LOCKED POSITION, SIDE RAILS UP X2, BED ALARM ON, CALL LIGHT WITHIN REACH. WILL CONTINUE TO MONITOR PT.
[2022-01-28 08:00] VITALS: BP 100/60
[2022-01-28] MEDS: PANTOPRAZOLE 40 MG TABLET.DR PO SCH (08:30)
[2022-01-28] MEDS: FOLIC ACID 1 MG TABLET PO SCH (08:56)
[2022-01-28] MEDS: DULOXETINE HCL 30 MG CAPSULE.DR PO SCH (08:57)
[2022-01-28] MEDS: THIAMINE HCL 100 MG TABLET PO SCH (08:57)
[2022-01-28] MEDS: MIDODRINE HCL (5MG) 5 MG TABLET PO SCH (08:57)
[2022-01-28] MEDS: NICOTINE PATCH (21MG) 21 MG PATCH.TD24 TD SCH (08:57)
[2022-01-28] MEDS: RIFAXIMIN 550 MG TABLET PO SCH (08:57)
[2022-01-28] MEDS: SPIRONOLACTONE 25 MG TABLET PO SCH (08:58)
[2022-01-28 09:00] VITALS: BP 100/60
[2022-01-28] MEDS: PROPRANOLOL LA 60 MG CAP.SA.24H PO SCH (09:00)
[2022-01-28] MEDS: Z GUARD REMEDY 4 OZ OINT TP SCH (09:03)
[2022-01-28] MEDS: ENSURE ENLIVE 237 ML LIQUID (VANILLA) PO SCH (09:03)
[2022-01-28] MEDS: CLOTRIMAZOLE 1% 15 GM TUBE TP SCH (09:04)
[2022-01-28] MEDS: FUROSEMIDE 40 MG TABLET PO SCH (09:09)
--- NOTE | 2022-01-28 12:30 | NUR ---
SS Note: ASAD met with pt. and sister, Tamar at bedside prior to pt. discharging. The pt. is alert & oriented x 3 and makes avoidant eye contact. Pt. appears, unkempt, emaciated with depressed mood & affect SW spoke with pt. regarding the document stating that the pt. would like to effective immediately relinquish the medical decision making to Dustin Butler (alleged life partner) and his sister, Tamar. SW asked pt. if Dustin is his life partner. Pt. stated they once dated many years ago but are now just roommates. Pt. stated he wants to fill out a new advanced directive and provide copy to his PCP and family. . SW informed pt. he just has to rip the original document and complete a new one and have it notarized or if the pt. is in a SNF they must call Ombudsman to witness the signature. Pt. and family expressed understanding and are agreeable. Patient stated he would like his sister, Tamar dn his brother Yamileth to make those medical decisions on his behalf only when eh is notable to make decisions himself. Noted. Plan: Pt. will be [facility] TEL:[phone]. Family and pt. will work with ASAD there to complete new advanced healthcare directive and call Ombudsman to witness. ASAD provided Advanced healthcare directive, information packet, number for Ombudsman and mobile notary. ASAD also provided the following resources: ABUSE PREVENTION: ELDER ABUSE HOTLINE (22/03) ADULT PROTECTIVE SERVICES HOTLINE LONG-TERM CARE [facility] [place] Region AREA ON AGING (HOTLINE) ADULT DAY HEALTH CARE CARE CENTERS: Private pay or Medi-jami funded adult day care [place] Adult [facility] , [facility] , [facility] , [facility] Adult Day Health Care , [facility] Adult [facility] Health Care , [facility] Adult Daycare Center , [place] [facility] Generation Center , [facility] Adult Center , [place] ALZHEIMERS DISEASE/DEMENTIA: Alzheimers Association Helpline [facility] Chapter www.alz.org/[facility] Department of Aging www.lacity.org Family Caregiver [place] www.caregiver.org [place] Caregiver Resources Center/Family Support www.losangekosair children's hospital.org CANCER RESOURCES: [place] Cancer Society www.cancer.org Cancer Support Community www.CancerSupportVvsb.org: CancerCare www.cancercare.org [facility] Cancer Support [place] www.[facility].org [facility] REGIONAL HEALTH ASSOCIATIONS: AARP www.aarp.org ALS Association (ask for Nayeli) www.als.org [place] Diabetes Association www.diabetes.org [place] Heart Association www.heart.org Cam[place] Lung Association www.lungusa.org Cam[place] Parkinson Disease Association www.apdaparkinson.org Cameroonian Vineyards , www.redcross.org Arthritis Foundation www.arthritis.org Crohns & Colitis Foundation of Cam[place]onian www.ccfa.org/chapters/juvencio National Multiple Sclerosis Society www.nationalmssociety.org Myasthenia Gravis Foundation www.myasthenia-ca.org National Stroke Association www.stroke.org CONSERVATORSHIP & GUARDIANSHIP: AARP Josselin Angelo Legal Services Center for Health Care Rights Eldercare Information and Referral House Mover Helper Foundation [facility]: [facility] Bar Referral Service [facility] Legal Services Office of the Public Guardian [place] EYESIGHT DISORDER RESOURCES: [place] Macular Degeneration Foundation [facility] www.s[facility] institute.org GRIEF AND BEREAVEMENT RESOURCES: The Gathering Place , [facility] THE HOPE Connection , [facility] Bereavement Center , Endeavor HEARING DISORDER RESOURCES: [place] Telephone Access Program Deaf and Disabled Telecommunications Program www.ddtp.public health service hospital.ca.gov HearRx Hearing Centers ([place]) Better Hearing Systems , Endeavor GLAD ([facility] Agency on Deafness) V/ TTY; Lead Teacher , [facility] -low income hearing aid assistance www.hca [facility] twin cities hospitalfoundation.org [place] Hearing [facility] , Gina HELP AT HOME CAREGIVER SUPPORT: In Home Support Services (Must have Medi-Jami to be eligible) *Ask for a list of agencies that provide services to assist with care in the home. Local Senior Centers also have listings of care providers. HOME SAFETY MODIFICATIONS AND EQUIPMENT: Senior centers have additional referrals. [place] Housing and Community Investment Dept. Handyworker Program (low income) or Visit http://hcidla.[facility].org/wly-mhfjnp-nz for more information National Seating and Mobility and/or ; Forever Active www.foreveractivemed.kidthing Stay Home Safe www.Stayhomesafe.kidthing LIFE ALERT RESPONSE SYSTEM: Rox Resourcesline Services 838-040-4235 www. BalaBit Life Alert 456-977-7866 www.Sociagram.com Life Station 833-851-1710 www.Hybio Pharmaceuticalation.kidthing Safe Return 683-814-8087 www.alz.or/safereturn Cell Phones for Seniors www.saambaa MEALS AND FOOD PROGRAMS: [place] Meals on Wheels [phone] [place] Meals on Wheels [phone] [facility] [phone] [place] to the Homebound [phone] [place] to the Homebound [phone] [facility] Center to the Homebound [phone] [facility] [place] to the Homebound [phone] [facility] [phone] [facility] [phone] ONE Generation [phone] [facility] [phone] Critical Access Hospital [phone] Meals on Wheels [phone] For all ages: $6.85/ meal w side. Delivered M-F from 10 am-1pm. Application and payment is done over the phone. Frozen meals available for weekends. Emergency Food Coalition [phone] [facility] Electrical Laboratory Technician [phone] [facility] [phone] [facility]- Brown bag lunches [phone] [facility] [phone] MEAL/GROCERY DELIVERY PROGRAMS: [facility] Gourmet Meals [phone]- [facility] [phone]- [facility] Magic Kitchen [phone] Moms Meals [phone] (ask Mcnair for Discount Select grocery stores may provide delivery. MEDICAL INSURANCE SUPPORT SERVICES: Center for Health Care Rights [phone] Health Insurance Counseling/Advocacy Programs (HICAP)-Must have Medicare. Offers counseling for Medi-Jami eligibility [phone] Department of Public Electrical Laboratory Technician [phone] www.[facility].ca.gov Medicare 672-349-5199 www.socialsecurity.org Social Security [phone] SENIOR ACTIVITY PROGRAMS: *Contact a local senior center, adult school, recreation facility or [facility] for education, fitness, recreation, and social programs. Aquatic Therapy and Adapted Exercise programs through [facility] [phone] En[facility] at [facility] 287-911-7440 www.[facility]/encore U- Senior Friends 111-385-4475 [place] Senior Programs [phone] www.oasisnet.org Suddenly 65 www.Leho.kidthing SENIOR CENTERS: [facility] [phone] [facility] [phone] [facility] [phone] [facility] [phone] [facility] [phone] [facility] [phone] [facility] [phone] [facility] [phone] One Generation, [facility] [phone] [facility] [phone] [facility] [phone] [facility] [phone] [facility] [phone] TRANSPORTATION: Local [facility] Centers may have applications for transportation programs and additional resources. ACCESS Services [phone] Transportation for seniors and disabled persons 7 days a week requiring 254 hr. advance reservation. Must apply and register for program surjit eligible. CITY RIDE [phone] or [phone] Transportation for seniors and persons with ADA card/metro disabled card in the [facility]. M-F only. Must register for services. ONE GENERATION [phone] Serves 65 years + in conjunction with [place] ride program. Must be registered with both programs. A to B Transport [phone] Provides wheelchair/gurney van service. Adult Medical Transport [phone] Accepts [facility] with prior authorization. Care Van [phone] Provides wheelchair Transport. [facility] Wide Transportation [phone] Provides gurney service Gentle Care [phone] Gurney Transport. All Town Transportation [phone] wheelchair & gurney transport D Transportation [phone] wheelchair & gurney transport [place] Non-Emergency Transport [phone] wheelchair & gurney transport [facility] Living [place]ning [phone] Short Term Transportation primarily for adults with disabilities on social security income. Nominal fee may apply and a reservation is required. City Cab [phone] or [phone] Pesco-Beam Environmental Solutions [facility] [phone] [place] [address] Referral Services -[phone] For additional programs & services VETERANS RESOURCES: Submissions for Aid and Attendance should be done directly to Federal VA office locatd at : [address] [address] [phone] National Caregiver Support Line [phone] Jami Calvo Veterans Services Field Office [phone] [place] Department of Affairs [phone] Pension Information [phone]
--- NOTE | 2022-01-28 13:30 | NUR ---
CRUSHER LOADER OPERATOR NOTES PT DISCHARGED TO [facility] IN STABLE CONDITION. REPORT GIVEN TO LEXII ARTEAGA. PT IS A/O X4, ABLE TO MAKE NEEDS KNOWN. ON RA, TOLERATING WELL WITH SPO2 AT 96%. BREATHING EVEN AND UNLABORED. NOT IN ANY SIGN OF RESPIRATORY DISTRESS. V/S TAKEN, STABLE, AND RECORDED. BODY ASSESSMENT AND PICTURES REFUSED BY PATIENT. ALL BELONGINGS ACCOUNTED FOR. ALL DISCHARGED INSTRUCTIONS AND HEALTH TEACHINGS PROVIDED TO THE PT AND PT VERBALIZED UNDERSTANDING AND SIGNED DISCHARGED DOCUMENTS. IV ACCESS ON LEFT FOREARM REMOVED WITH NO ACTIVE BLEEDING NOTED. DRY PRESSURE DRESSING APPLIED AT SITE. PT LEFT THE UNIT VIA GURNEY AT 1315L, ACCOMPANIED BY 2 SERVICE TECH. MD AND CHARGED NURSE AWARE OF DISCHARGED.
== END 2022-01-28 13:00 | DRG 641 ==
LOC: ER 01:13 → TRANSITION 08:17 → TELE 13:29 → MED 01-22 10:08
PROVIDERS: ADMIT Nurse Practitioner Family; ATTEND Internal Medicine
PROC: 0W9G3ZZ Drainage of Peritoneal Cavity, Percutaneous Approach (ICD-10-PCS; principal; 2022-01-13)
PROC: 0W9G3ZZ Drainage of Peritoneal Cavity, Percutaneous Approach (ICD-10-PCS; 2022-01-27)
DX: E87.1 Hypo-osmolality and hyponatremia (principal); E44.1 Mild protein-calorie malnutrition; R18.8 Other ascites; E86.1 Hypovolemia; K74.60 Unspecified cirrhosis of liver; D50.9 Iron deficiency anemia, unspecified; E87.2 Acidosis; D53.9 Nutritional anemia, unspecified; E88.09 Other disorders of plasma-protein metabolism, not elsewhere classified; F32.A Depression, unspecified; R73.9 Hyperglycemia, unspecified; Z68.22 Body mass index [BMI] 22.0-22.9, adult; F41.1 Generalized anxiety disorder; F32.9 Major depressive disorder, single episode, unspecified; F10.10 Alcohol abuse, uncomplicated; E87.6 Hypokalemia; E83.42 Hypomagnesemia; D69.6 Thrombocytopenia, unspecified; R53.1 Weakness; W19.XXXA Unspecified fall, initial encounter; Y93.9 Activity, unspecified; Y92.009 Unspecified place in unspecified non-institutional (private) residence as the place of occurrence of the external cause; Z20.822 Contact with and (suspected) exposure to COVID-19; Z87.891 Personal history of nicotine dependence
CPT/HCPCS: 36415; 36600; 70450-TC; 71045-TC; 76700-TC; 76942-TC; 80048-TC; 80053-TC; 80076-TC; 80202-TC; 81001; 82140-TC; 82607-TC; 82803-TC; 83605-TC; 83690-TC; 83735-TC; 83880; 84100-TC; 84484-TC; 85025-TC; 85610-TC; 85730-TC; 87040-TC; 87081-TC; 87086-TC; 97110-TC; 97116-TC; 97530-TC; 97535-TC; A9563; C9113; C9803; G0378; J1644; J1940; J2060; J2543; J3370; J3475; J7030; J7040; J7050; J7060; P9047

== ENCOUNTER 2022-02-04 14:29 | Emergency (ER) | payer BC ==
[~2022-02-04] VITALS: Ht 172.7 cm; Wt 69.9 kg
[~2022-02-04 14:29] MED LIST changes: +FURO40TA5 PO; -PANT40TA2 PO; +PANT40TA49 PO; +PROP60CA2 PO; -PROP60CA38 PO; +SPIR100T5 PO
--- NOTE | 2022-02-04 14:31 | NUR ---
BIBPA FRM [facility] C/O ABD PAIN, "I'M DUE FOR PARACENTESIS." VITALS ARE WITHIN NORMAL LIMITS, NO RESP DISTRESS NOTED. ABDOMEN IS DISTENDED. IV ETSBLIHASED R AC 20G. LABS DRAWN AND SENT. AWAITING MD CARRASCO.
[2022-02-04] MEDS ORDERED: ARGI1POW13 PO (15:25)
[2022-02-04] MEDS ORDERED: DIPH25CA51 PO (15:25)
[2022-02-04] MEDS ORDERED: BALS60OI TP (15:25)
[2022-02-04] MEDS ORDERED: CHOL100043 PO (15:25)
[2022-02-04] MEDS ORDERED: MULT-447 PO (15:25)
[2022-02-04] MEDS ORDERED: AMIN30LI2 PO (15:25)
[2022-02-04] MEDS ORDERED: ZINC1CAP3 PO (15:25)
[2022-02-04] MEDS ORDERED: NYST15CR2 TP (15:25)
[2022-02-04] MEDS ORDERED: ASCO-352 PO (15:25)
[2022-02-04 15:51] LABS: BASOPHILS # (AUTO) 0.1 K/uL (0.0-0.2); BASOPHILS % (AUTO) 0.9 % (0.0-2.0); EOSINOPHILS % (AUTO) 3.6 % (0.0-6.0); HEMATOCRIT 32 % (39-51); HEMOGLOBIN 11.1 g/dL (13.5-17.5); LYMPHOCYTES # (AUTO) 1.2 K/uL (0.8-4.8); LYMPHOCYTES % (AUTO) 16.1 % (20.0-44.0); MEAN CORPUSCULAR HGB CONC 35 g/dl (31.0-36.0); MEAN CORPUSCULAR VOLUME 102 fL (80-96); MONOCYTES # (AUTO) 1.1 K/uL (0.1-1.30); MONOCYTES % (AUTO) 14.4 % (2.0-12.0); PLATELET COUNT (AUTO) 161 K/uL (150-450); RED BLOOD CELL COUNT(AUTO) 3.16 MIL/uL (4.5-6.0); WHITE BLOOD COUNT (AUTO) 7.7 K/uL (4.3-11.0)
[2022-02-04 15:53] LABS: CALCIUM, SERUM 9.5 mg/dL (8.5-10.1); CREATININE 0.9 mg/dL (0.6-1.3); POTASSIUM 3.5 mmol/L (3.5-5.1)
--- NOTE | 2022-02-04 15:54 | NUR ---
MOUNTAIN OR GLACIER GUIDE AT BEDSIDE FOR PARACENTESIS
[2022-02-04 16:15] LABS: BILIRUBIN,TOTAL 3.1 mg/dL (0.2-1.0); TOTAL PROTEIN, SERUM 6.5 g/dL (6.4-8.2)
--- NOTE | 2022-02-04 17:14 | NUR ---
[facility] CALLED FOR TRANSPORT ETA 60 MINS.
--- NOTE | 2022-02-04 18:23 | NUR ---
REPORT GIVEN TO AGUS FROM [facility] FOR AMINATA
--- NOTE | 2022-02-04 18:46 | NUR ---
IV removed. Catheter intact and site benign. Pressure and 4x4 applied to site. No bleeding noted.Patient discharged to home in stable condition. Written and verbal after care instructions given. Patient verbalizes understanding of instruction.
[2022-02-04 19:01] VITALS: BP 132/68
== END 2022-02-04 19:01 | disposition home or self-care (01) ==
LOC: ER 14:36
DX: K70.31 Alcoholic cirrhosis of liver with ascites (principal); Z79.899 Other long term (current) drug therapy
CPT/HCPCS: 36415; 76942-TC; 80053-TC; 85025-TC; 85730-TC

== ENCOUNTER 2022-02-09 12:23 | Emergency (ER) | payer BC ==
[~2022-02-09] VITALS: Ht 170.2 cm; Wt 63.5 kg
[~2022-02-09 12:23] MED LIST changes: +AMIN30LI2 PO; +ARGI1POW13 PO; +ASCO-352 PO; +BALS60OI TP; +CHOL100043 PO; +DIPH25CA51 PO; +MULT-447 PO; +NYST15CR2 TP; +ZINC1CAP3 PO
--- NOTE | 2022-02-09 12:35 | NUR ---
Pt bib private ambulance for Thoracentisis s/p liver failure. Pts pmd called to make arrangements. Pt placed on gurney, initial vs obtained, VSS 107/66, 99bpm, 98%RA, 2/10 pain. Pt a little pale with good temp, aaox4, PERRLA, no oral/dental lesions. Boarderline ST. Pt denies any sob, n/v, dizziness, or discomfort. Pt waiting patiently for EDMD eval.
[2022-02-09] MEDS ORDERED: NYST15OI2 TP (12:49)
--- NOTE | 2022-02-09 13:00 | NUR ---
US tech at bedside to begin paracentesis, asked for evac containers, 8 was given initially. She said she might need more. Apparatus set up by [employer]. awaiting [facility] to begin the procedure.
--- NOTE | 2022-02-09 13:45 | NUR ---
IRMD at bedside to begin paracentesis. IRMD inserted cath in rt side olique without difficulty, 8150cc clear yellow output evacuated from parietal space of abdomen. Pt tolerated well. No complaints of pain, sob, n/v, dizziness, chills, fv, ect.
--- NOTE | 2022-02-09 14:30 | NUR ---
US tech came back to make sure no more fluid is left and to remove catheter and dress site. Paracentesis cath dced without difficulty. Pt states that he feels great relief from before. VSS.
--- NOTE | 2022-02-09 15:00 | NUR ---
20g angio started on Rt AC without difficulty, Flushes well. Pt started on Albumin infusing over 30 min x2. 105/54, 98%, 16, 63bpm. 0/10 pain. No sob, no MAKI. Pt resting comfortably.
[2022-02-09] MEDS: ALBUMIN 25% 25 GM in PREMIX 1 EA IV SCH ×2 (15:30→15:54)
--- NOTE | 2022-02-09 17:34 | NUR ---
Lunch Relief Note: No Acute Distress, reclining in bed. Status quo. Pt made aware of plan of care
--- NOTE | 2022-02-09 17:45 | NUR ---
4th bottle of albumin just finished infusing. Pt anxious to leave and wants us to expodite his DC to snf. Pt is slightly hypotensive with SBP in the 90s. EDMD asked for orthostatic BP with pt just standing. If pt stands and BP goes up, then he can go home, if he stands and P goes down he has to stay a little longer, possibly overnight, pt refused. EDMD explained to him that if he goes back to snf with SBP that low, they will send him back to hospital.
--- NOTE | 2022-02-09 18:14 | NUR ---
CALLED [facility] AND SET UP S TRANSPORT ETA [phone]
--- NOTE | 2022-02-09 18:16 | NUR ---
After going to the bathroom for a BM, pts bp was rechecked standing and it went up to 96/57 and held firm for three cycles. EDMD agreed to write up dc instructions. Amb transport called for pt transport back to rehab center. ETA at 1845. Pt resting in pos of comfort awaiting transport. VSS, SBP in the 90s with 105 the highest.
[2022-02-09 19:07] VITALS: BP 105/65
--- NOTE | 2022-02-09 19:32 | NUR ---
Pt patiently awaiting transport back to rehab center. Pt signed out, instructions given, all belongings accounted for, IV DCed from Rt AC and site dressed.
--- NOTE | 2022-02-09 19:46 | NUR ---
step finisher just arrived to black pickler pt for transport back to rehab center. Will asist step finisher in loading pt and see him off. Thorough Report called to [facility] and report given to catia designer using Sbar method. All questions answered. Last VS 105/54, 99%ra, 16 rpm, 63bpm NSR. 0/10 pain. Pt VSS, PE WNL, NAD. No s/sx of distress present. Pt thankful for services rendered.
--- NOTE | 2022-02-09 19:51 | NUR ---
REPORT GIVEN TO [facility] FOR PT TO DC TO FACILITY
--- NOTE | 2022-02-09 19:52 | NUR ---
[facility] at bed side to forklift picker the pt
== END 2022-02-09 20:03 | disposition home or self-care (01) ==
LOC: ER 12:26
DX: K70.31 Alcoholic cirrhosis of liver with ascites (principal); I95.9 Hypotension, unspecified; Z79.899 Other long term (current) drug therapy
CPT/HCPCS: 49083; 96365; 96366; 99285; A4216; 76942-TC; P9047

== ENCOUNTER 2022-02-19 12:43 | Emergency (ER) | payer BC ==
[~2022-02-19] VITALS: Ht 175.3 cm; Wt 62.1 kg
[~2022-02-19 12:43] MED LIST changes: +NYST15OI2 TP
--- NOTE | 2022-02-19 15:33 | NUR ---
PATIENT SIGNED CONSENT FOR ULTRASOUND GUIDED PARACENTESIS
--- NOTE | 2022-02-19 15:44 | NUR ---
SANDY FU AT BEDSIDE
[2022-02-19 15:49] LABS: BASOPHILS # (AUTO) 0.1 K/uL (0.0-0.2); BASOPHILS % (AUTO) 0.5 % (0.0-2.0); EOSINOPHILS % (AUTO) 3.9 % (0.0-6.0); HEMATOCRIT 36 % (39-51); HEMOGLOBIN 12.2 g/dL (13.5-17.5); LYMPHOCYTES # (AUTO) 1.2 K/uL (0.8-4.8); LYMPHOCYTES % (AUTO) 12.2 % (20.0-44.0); MEAN CORPUSCULAR HGB CONC 34 g/dl (31.0-36.0); MEAN CORPUSCULAR VOLUME 101 fL (80-96); MONOCYTES # (AUTO) 0.7 K/uL (0.1-1.30); MONOCYTES % (AUTO) 6.8 % (2.0-12.0); NEUTROPHILS # (AUTO) 7.3 K/uL (1.8-8.9); NEUTROPHILS % (AUTO) 76.6 % (43.0-81.0); PLATELET COUNT (AUTO) 129 K/uL (150-450); RED BLOOD CELL COUNT(AUTO) 3.56 MIL/uL (4.5-6.0); WHITE BLOOD COUNT (AUTO) 9.6 K/uL (4.3-11.0)
--- NOTE | 2022-02-19 16:30 | NUR ---
PARCENTESIS DONE AND 6.7L FLUID IS REMOVED. DR PORTER MADE AWARE. THE PATIENT IS IN STABLE CONDITION. RESPIRATION REGULAR AND UNLABORED. WILL CONTINUE TO MONITOR THE PATIENT.
--- NOTE | 2022-02-19 16:54 | NUR ---
Roque corrales in ED - 02/19/22 at 1713 by IRLANDA TOTAL OF 5L AND 450 ML OF ABDOMINAL FLUID TAKEN FROM PATIENT. VSS.
--- NOTE | 2022-02-19 17:00 | NUR ---
[facility] ETA 90 MIN
--- NOTE | 2022-02-19 17:12 | NUR ---
REPORT GIVEN ROSINA SHULTZ OF [facility]
--- NOTE | 2022-02-19 17:45 | NUR ---
Patient discharged in stable condition. Written and verbal after care instructions given. Patient verbalizes understanding of instruction. Family Dustin Butler (phone [phone] ) will bring patient back to [facility]. Gabriele Washington RN of [facility]. Assisted patient via wheelchair out of the facility.
[2022-02-19 18:20] VITALS: BP 116/62
== END 2022-02-19 17:45 ==
LOC: ER 13:10
DX: K70.31 Alcoholic cirrhosis of liver with ascites (principal); Z79.899 Other long term (current) drug therapy
CPT/HCPCS: 36415; 49083; 85025; 85730; 99285; A6403; 76942-TC